=== PATIENT | female | born 1935 | race Caucasian/White ===

== ENCOUNTER → 2016-06-14 | Day surgery (SDC) | payer MEDICARE, OTHER ==
[~2016-06-14] VITALS: Ht 144.8 cm; Wt 61.2 kg
[~2016-06-14] MED LIST: ACETAMINOPHEN 325 MG TAB PO PRN; ASPI325T28 PO; BENZ100C5 PO; D5W/0.2% SODIUM CHLORIDE 250 ML IV SCH; GLIP10TA6 PO; GLIP5TAB8 PO; HYDR12.55 PO; KETOROLAC 0.5% OPHTH SOLN OD ONE; LIDOCAINE 2% W/EPIN INJ 20ML **PRES FREE As Ordered ONE; LIDOCAINE 4% INJ 5 ML AMP OU ONE; LR 1,000 ML IV SCH; MAGN250T5 PO; MAXITROL OPHTH OINT 3.5 GM As Ordered ONE; MIDAZOLAM INJ 2 MG/2 ML VIAL (J2250) As Ordered ONE; OMEP40CA2 PO; ONDANSETRON 4MG/2ML VIAL (J2405) IV PRN; ONETAB11 PO; ONGL1TAB9 PO; POTA99TA PO; POVIDONE-IODINE 5% OPHTH PREP SOL 30ML As Ordered ONE; PROPARACAINE 0.5% OPHTH SOL 15ML OD PRN; PROPOFOL 200 MG/20 ML VIAL As Ordered ONE; SYMB16INH INH; TRIMETHOBENZAMIDE 300 MG CAP PO PRN; TROS60CA2 PO; TYLE500T78 PO; [UNRECOGNIZED DRUG - CODE] PO; fentaNYL 100 MCG/2 ML INJECTION (J3010) As Ordered ONE; mitoMYcin (FOR OPHTHALMIC USE) 0.3MG/1ML SYRINGE IN NaCl (J7999) As Ordered ONE
[2016-06-14 11:40] VITALS: BP 170/75
--- NOTE | 2016-06-24 21:37 | RO ---
DATE OF PROCEDURE: 06/14/2016 PREPROCEDURE DIAGNOSIS: Poorly controlled open angle glaucoma, status post EX-PRESS shunt position supratemporally. POSTPROCEDURE DIAGNOSIS: Poorly controlled open angle glaucoma, status post EX-PRESS shunt position supratemporally. Status post insertion of second EX-PRESS shunt supranasally with mitomycin C 0.3 mg per mL for 2 minutes underneath the conjunctiva. INDICATION FOR PROCEDURE: Poorly controlled open angle glaucoma, status post EX-PRESS shunt position supratemporally. PROCEDURE: EX-PRESS shunt insertion, supranasal position. SURGEON: Prabhu Zacarias Jr., DO, FACS [employer]ITION [employer]SEM[employer] II LABORER: ANESTHESIA: Local and 2% lidocaine with epinephrine infused underneath the conjunctiva and Sub-Tenon's capsule superiorly. SPECIMENS: None. ESTIMATED BLOOD LOSS: Minimal. COMPLICATIONS: Reattaching the conjunctiva to the limbus was difficult. A number of sutures were placed. The eye was leak free at the end of the procedure. DESCRIPTION OF PROCEDURE: After obtaining informed consent, the patient was taken to the operating room and prepped and draped in a sterile fashion. A lid speculum was introduced into the right eye. A bridle suture with #8-0 Vicryl was placed through the temporal cornea, rotating the eye down and temporally. The supranasal conjunctiva was inspected. Subconjunctival injection of 2% lidocaine with epinephrine was performed. A conjunctival peritomy was created. A 3 x 3 partial thickness rectangular scleral flap was created and dissected forward to the blue line of the cornea. Three Mitomycin C soaked sponge, concentration, 0.3 mg per mL were placed underneath the conjunctiva and left in place for two minutes. The eye was irrigated vigorously with three bottles of balanced salt solution (BSS). The EX-PRESS shunt, version P50, was inserted underneath the flap through the blue line of the cornea. The position was good and flow was satisfactory. The scleral flap was reapproximated with a pair of #10-0 nylon sutures through the sclera. The conjunctiva was friable and #8-0 Vicryl and #10-0 nylon sutures were placed to reattach it to the limbus. At the end of the case the eye seemed leak free and the bridle suture was removed. Lid speculum was removed. The eye was administered Maxitrol ointment, patched and shielded. The patient returned to the recovery room in excellent condition and will followup in the office on postoperative day #1.
== END | disposition home or self-care (01) ==
LOC: M SDC 07:00
PROVIDERS: ATTEND Ophthalmology
DX: H40.10X0 Unspecified open-angle glaucoma, stage unspecified (principal); I10 Essential (primary) hypertension; E11.9 Type 2 diabetes mellitus without complications; K21.9 Gastro-esophageal reflux disease without esophagitis; R29.898 Other symptoms and signs involving the musculoskeletal system; M54.5 Low back pain; F32.9 Major depressive disorder, single episode, unspecified; J45.909 Unspecified asthma, uncomplicated; R06.02 Shortness of breath; N32.81 Overactive bladder; Z88.8 Allergy status to other drugs, medicaments and biological substances; Z79.899 Other long term (current) drug therapy; Z90.710 Acquired absence of both cervix and uterus; Z96.1 Presence of intraocular lens
CPT/HCPCS: 66183; C1783; J2250; J3010; J7999

== ENCOUNTER 2019-03-15 05:49 | Day surgery (SDC) | payer MEDICARE, OTHER ==
[~2019-03-15] VITALS: Ht 144.8 cm; Wt 60.7 kg
[~2019-03-15 05:49] MED LIST changes: -ACETAMINOPHEN 325 MG TAB PO PRN; +AMLO-183 PO; +APAP500T10 PO; +ASPI-527 PO; -ASPI325T28 PO; +BENZ-18 PO; -BENZ100C5 PO; +BETH1TAB3 PO; +CHILCHW27 PO; +CVS1TAB PO; -D5W/0.2% SODIUM CHLORIDE 250 ML IV SCH; +INSUDET SC; +JANU100T PO; -KETOROLAC 0.5% OPHTH SOLN OD ONE; -LIDOCAINE 2% W/EPIN INJ 20ML **PRES FREE As Ordered ONE; -LIDOCAINE 4% INJ 5 ML AMP OU ONE; -LR 1,000 ML IV SCH; -MAGN250T5 PO; +MAGN250T6 PO; -MAXITROL OPHTH OINT 3.5 GM As Ordered ONE; -MIDAZOLAM INJ 2 MG/2 ML VIAL (J2250) As Ordered ONE; -OMEP40CA2 PO; +OMEP40CA97 PO; -ONDANSETRON 4MG/2ML VIAL (J2405) IV PRN; +ONE1TAB3 PO; -ONETAB11 PO; -POVIDONE-IODINE 5% OPHTH PREP SOL 30ML As Ordered ONE; -PROPARACAINE 0.5% OPHTH SOL 15ML OD PRN; -PROPOFOL 200 MG/20 ML VIAL As Ordered ONE; +SM M250T PO; +SM P99TA PO; -TRIMETHOBENZAMIDE 300 MG CAP PO PRN; -[UNRECOGNIZED DRUG - CODE] PO; -fentaNYL 100 MCG/2 ML INJECTION (J3010) As Ordered ONE; -mitoMYcin (FOR OPHTHALMIC USE) 0.3MG/1ML SYRINGE IN NaCl (J7999) As Ordered ONE
[2019-03-15] MEDS ORDERED: ceFAZolin SOD 2 GM in IV 1 EA IV ONE (06:00)
[2019-03-15] MEDS ORDERED: LR 1,000 ML IV ONE (06:00)
[2019-03-15] MEDS ORDERED: ROCURONIUM BROMIDE 50 MG/5 ML VIAL As Ordered ONE (06:50)
[2019-03-15] MEDS ORDERED: LIDOCAINE 2% INJ 100 MG/5 ML SDV (FOR ANES.) As Ordered ONE ×2 (06:50→07:00)
[2019-03-15] MEDS ORDERED: ONDANSETRON 4MG/2ML VIAL (J2405) As Ordered ONE (06:51)
[2019-03-15] MEDS ORDERED: propofoL 200 MG/20 ML VIAL As Ordered ONE ×2 (06:51→07:00)
[2019-03-15] MEDS ORDERED: dexameTHASONE 4 MG/ML 1ML VIAL (J1100) As Ordered ONE (06:51)
[2019-03-15] MEDS ORDERED: fentaNYL 100 MCG/2 ML INJECTION (J3010) As Ordered ONE ×2 (06:52→08:27)
[2019-03-15] MEDS ORDERED: KETAMINE HCL 200 MG/20 ML VIAL As Ordered ONE (06:52)
[2019-03-15] MEDS ORDERED: LIDOCAINE 1% SDV INJ 30 ML VIAL As Ordered ONE (06:58)
[2019-03-15] MEDS ORDERED: ceFAZolin 1GM INJ (J0690 PER 500MG) As Ordered ONE (06:58)
[2019-03-15] MEDS ORDERED: ACETAMINOPHEN 1000MG 100ML IV BTL (OFIRMEV) (J0131 PER 10MG) As Ordered ONE (08:12)
[2019-03-15] MEDS ORDERED: LR 1,000 ML IV SCH (09:45)
[2019-03-15] MEDS ORDERED: IBUPROFEN 600 MG TAB PO PRN (09:45)
[2019-03-15 09:55] VITALS: BP 123/56
--- NOTE | 2019-03-15 09:55 | REP ---
LIMITED PELVIS: Two views. HISTORY: Incontinence. 30 seconds of fluoroscopy time is reported. FINDINGS: A sequence of two last image hold fluoroscopically obtained spot radiographs of the pelvis document trans sacral nerve stimulator placement. No laterality markers are visible. Electronically Signed by David Hernandez MD 03/15/2019 10:15 A
--- NOTE | 2019-03-15 15:25 | RO ---
DATE OF PROCEDURE: 03/15/2019 PREPROCEDURE DIAGNOSIS: Both fecal and urinary incontinence. POSTPROCEDURE DIAGNOSIS: Both fecal and urinary incontinence. OPERATIVE PROCEDURE: InterStim stage I. Placement tined lead, placement of temporary generator and programming. SURGEON: Leah Medrano MD GASKET SUPERVISOR: None. ANESTHESIA: Monitored anesthesia care (MAC) and local. DESCRIPTION OF PROCEDURE: Jazmine was brought to the operating room where sufficient sedation was given. She was prepped and draped and positioned in the usual prone position and then after measuring a left-sided lead was placed. With testing we had total response at about 1.6 but no pina at all. We worked medially based on the x-rays that were taken and placed another lead and again had response this time at 2.3 give or take a toe, but not pina. We then stood the needle up somewhat, placed two more leads near the left side, two more different positions, and continued to not really get a decent pina response. We went ahead and moved to the right side where we had several different needle positions. Again checking with the x-ray each time and again getting considerably more toe than pina response. But the patient did on this side feel it much more distinctly in the vaginal area. She was able to definitely describe sensation there more strongly than on the other and at high enough numbers we got pina response as we had not had that on the left side. So we went ahead and used I think this may have been the 6th or 7th needle placed, maybe even 8th through the third foramen. This one on the right side, definitely more than typical. The patient does have palpable arthritic changes as the needles are placed and of course her symptoms of lack of response are consistent with her fecal incontinence symptoms. That said, we used the needle that we had placed with the best response and then went ahead and placed the tined needle for the permanent lead in the usual fashion, then buried this out to the patient's right side, creating a pocket attached to the extension, used of course the antibiotic irrigate for the pocket as well to minimize our risk of infection and then extended out the lead to the patient's right flank for the temporary generator which was then connected and closed the pocket wound with two layer closure of Vicryl and using #2-0 deeper and #3-0 at the skin and then using #3-0 at the skin over the sacrum and at the skin of the flank, and of course dry sterile dressings were then applied and the procedure ended. ESTIMATED BLOOD LOSS: About 1 mL. FLUIDS REPLACED: Crystalloid. COMPLICATIONS: None. The patient did have evidence of suboptimal nerve function, very much consistent with her preoperative concerns, but had a reasonable placement as already noted. We did have toe response at all four leads even though we did not have good pina. We did have vaginal sensation. CONDITION AND DISPOSITION: Jazmine tolerated the procedure well despite the multiple needles needed and was recovering in the recovery room in good condition.
== END 2019-03-15 10:08 | disposition home or self-care (01) ==
LOC: M SDC 05:49
PROVIDERS: ATTEND Obstetrics & Gynecology
DX: R32 Unspecified urinary incontinence (principal); N32.81 Overactive bladder; R15.9 Full incontinence of feces; E11.319 Type 2 diabetes mellitus with unspecified diabetic retinopathy without macular edema; H40.9 Unspecified glaucoma; I10 Essential (primary) hypertension; E78.5 Hyperlipidemia, unspecified; J45.20 Mild intermittent asthma, uncomplicated; K21.9 Gastro-esophageal reflux disease without esophagitis; F41.9 Anxiety disorder, unspecified; G43.909 Migraine, unspecified, not intractable, without status migrainosus; Z88.8 Allergy status to other drugs, medicaments and biological substances; Z79.899 Other long term (current) drug therapy; Z79.82 Long term (current) use of aspirin; Z79.4 Long term (current) use of insulin
CPT/HCPCS: 64581; 76000; C1767; J0131; J0690; J2405; J3010

== ENCOUNTER 2019-03-22 06:14 | Day surgery (SDC) | payer MEDICARE, OTHER ==
[~2019-03-22] VITALS: Ht 144.8 cm; Wt 59.8 kg
[~2019-03-22 06:14] MED LIST changes: +LR 1,000 ML IV ONE; +ceFAZolin SOD 2 GM in IV 1 EA IV ONE
[2019-03-22] MEDS ORDERED: propofoL 500 MG/50 ML VIAL As Ordered ONE (07:00)
[2019-03-22] MEDS ORDERED: ONDANSETRON 4MG/2ML VIAL (J2405) As Ordered ONE (07:00)
[2019-03-22] MEDS ORDERED: dexameTHASONE 4 MG/ML 1ML VIAL (J1100) As Ordered ONE (07:00)
[2019-03-22] MEDS ORDERED: MIDAZOLAM INJ 2 MG/2 ML VIAL (J2250) As Ordered ONE (07:01)
[2019-03-22] MEDS ORDERED: fentaNYL 100 MCG/2 ML INJECTION (J3010) As Ordered ONE (07:01)
[2019-03-22] MEDS ORDERED: LIDOCAINE 1% SDV INJ 30 ML VIAL As Ordered ONE (07:10)
[2019-03-22] MEDS ORDERED: ceFAZolin 1GM INJ (J0690 PER 500MG) As Ordered ONE (07:11)
[2019-03-22 10:10] VITALS: BP 175/72
--- NOTE | 2019-03-22 12:32 | RO ---
DATE OF SURGERY: 03/22/2019 PREOPERATIVE DIAGNOSIS: Success stage I InterStim. POSTPROCEDURE DIAGNOSIS: Success stage I InterStim. OPERATIVE PROCEDURE: InterStim stage II with programming. SURGEON: Leah Medrano MD WEBLOGIC ADMINISTRATOR: None. ANESTHESIA: Sedation and local. BRIEF DESCRIPTION OF PROCEDURE AND FINDINGS: Jazmine was brought to the operating room where sufficient anesthesia was induced. She was placed prone, prepped and draped and positioned in the usual fashion. Then, the area over the extension to the temporary generator was numbed with lidocaine. After appropriate delay, the previous wound was incised and opened to the level of the director regulatory agency connection, which was elevated. The director regulatory agency cable cut and the connection disconnected so that the InterStim lead could then be connected to the permanent generator. After it was connected, a pocket was created. Bovie was used to maintain hemostasis. Antimicrobial irrigant was used. Then, the InterStim was placed into the pocket. I then did a deep layer and superficial layer closure using #2-0 and #3-0 Vicryl, respectively. The impedance was tested. After it passed the test, Steri-Strips and wound dressing were placed. The sutures from the previous procedure were also remove and the director regulatory agency removed as well, and the procedure then ended. Estimated blood loss for the procedure about 2 mL. Fluid replacement was crystalloid. Complications: None. CONDITION AND DISPOSITION: Jazimne tolerated the procedure well, and was recovering in the recovery room in good condition.
== END 2019-03-22 10:35 | disposition home or self-care (01) ==
LOC: M SDC 06:14
PROVIDERS: ATTEND Obstetrics & Gynecology
DX: R32 Unspecified urinary incontinence (principal); N32.81 Overactive bladder; R15.9 Full incontinence of feces; E11.9 Type 2 diabetes mellitus without complications; I10 Essential (primary) hypertension; M54.5 Low back pain; F41.9 Anxiety disorder, unspecified; K21.9 Gastro-esophageal reflux disease without esophagitis; G43.909 Migraine, unspecified, not intractable, without status migrainosus; Z88.8 Allergy status to other drugs, medicaments and biological substances; Z79.899 Other long term (current) drug therapy; Z79.82 Long term (current) use of aspirin; Z79.4 Long term (current) use of insulin
CPT/HCPCS: 64590; C1767; J0690; J1100; J2250; J2405; J3010

== ENCOUNTER 2019-04-10 10:23 | Inpatient (IN) | payer MEDICARE, OTHER ==
[~2019-04-10] VITALS: Ht 149.9 cm; Wt 56.5 kg
[~2019-04-10 10:23] MED LIST changes: -LR 1,000 ML IV ONE; -ceFAZolin SOD 2 GM in IV 1 EA IV ONE
[2019-04-10 12:33] LABS: BASO % 0.4 % (0.0-1.0); EOS % 0.4 % (0.0-3.0); HEMATOCRIT 35.9 % (36.0-47.0); HEMOGLOBIN 11.8 g/dl (12.0-15.5); LYMPH # 1.4 10^3/uL (1.5-5.0); LYMPH % 12.4 % (24.0-44.0); MEAN CORPUSCULAR HEMOGLOBIN 29.1 pg (27.0-33.0); MEAN CORPUSCULAR HGB CONC 32.9 g/dl (32.0-36.5); MEAN CORPUSCULAR VOLUME 88.4 fl (80.0-96.0); MONO # 1.1 10^3/uL (0.0-0.8); MONO % 9.7 % (0.0-5.0); NEUTROPHILS # 8.4 10^3/uL (1.5-8.5); NEUTROPHILS % 75.9 % (36.0-66.0); PLATELET COUNT, AUTOMATED 189 10^3/uL (150-450); RED BLOOD COUNT 4.06 10^6/uL (4.00-5.40)
[2019-04-10] MEDS ORDERED: NS 1,000 ML IV SCH (12:45)
[2019-04-10 12:50] LABS: BLOOD UREA NITROGEN 19 MG/DL (7-18); CALCIUM LEVEL 8.8 MG/DL (8.8-10.2); CARBON DIOXIDE LEVEL 28 MEQ/L (21-32); CHLORIDE LEVEL 95 MEQ/L (98-107); CK-MB VALUE MASS < 1.0 NG/ML (<3.6); CPK CREATINE PHOSPHOKINASE 39 U/L (26-192); CREATININE FOR GFR 0.87 MG/DL (0.55-1.30); GLOMERULAR FILTRATION RATE > 60.0 (>32); GLUCOSE, FASTING 183 MG/DL (70-100); MB/CK RELATIVE INDEX 2.56 (< OR =4); POTASSIUM SERUM 4.5 MEQ/L (3.5-5.1); SODIUM LEVEL 132 MEQ/L (136-145); TROPONIN I < 0.02 NG/ML (< 0.10)
--- NOTE | 2019-04-10 12:53 | REP ---
Clinical: Cough and dyspnea . Comparison: 01/14/2016 . Findings: The mediastinum and cardiac silhouette are stable and within normal limits for portable technique. The lung shen demonstrate chronic stable changes without acute consolidation, effusion, or pneumothorax. Skeletal structures are intact. Evidence of prior gastric surgery. Impression: No acute cardiopulmonary process appreciated. Electronically Signed by Stephen Merchant MD 04/10/2019 12:44 P
[2019-04-10 12:56] LABS: INR 1.19; PROTHROMBIN TIME 14.8 SECONDS (11.8-14.0)
[2019-04-10 13:05] LABS: NT-PRO BNP 3911 PG/ML (<450)
[2019-04-10] MEDS ORDERED: FUROSEMIDE 20 MG/2 ML VIAL (J1940) IV ONE (13:30)
[2019-04-10] MEDS ORDERED: MAALOX 30 ML SUSP *UDC PO PRN (14:45)
[2019-04-10] MEDS ORDERED: MOM 30ML SUSPENSION UDC PO PRN (14:45)
[2019-04-10] MEDS ORDERED: GLUCAGON FOR INJ 1 MG VIAL (J1610) SC PRN (14:45)
[2019-04-10] MEDS ORDERED: ACETAMINOPHEN TAB 650MG DOSE (2X325MG) PO PRN (14:45)
[2019-04-10] MEDS ORDERED: GLUCOSE 4 GM CHEW TABLET PO PRN (14:45)
[2019-04-10] MEDS ORDERED: DEXTROSE 50% 50 ML SYRINGE IV PRN (14:45)
--- NOTE | 2019-04-10 15:02 | HPEPDOC ---
General Date of Admission 04/10/19 Date of Service: Apr 10, 2019 Chief Complaint The patient is a 84-year-old female admitted with a reason for visit of Difficulty Breathing. Source: Patient Exam Limitations: No limitations Timing/Duration: Other (since last surgery 03/22/2019) Severity: Moderate Associated Symptoms: Shortness of breath History of Present Illness This is a 84 years old, elderly white female with past medical history of diabetes mellitus, diabetic retinopathy, hypertension, hyperlipidemia, asthma, GERD, urinary incontinence, fecal incontinence, diverticulosis, and chronic sinusitis was in usual state of health until March 22 when she had a placement of temporary generator as an outpatient for fecal and urinary incontinence done. Patient has been complaining of increasing shortness of breath even when she walks from bed to the bathroom since the surgery but progressively has gotten worse and she decided come to ER. Patient denies chest pain, nausea, vomiting, diarrhea, abdominal pain, cough, phlegm or fever. Home Medications Scheduled Amlodipine/Atorvastatin (Amlodipine-Atorvast 5-10 mg) 1 Tab Tab, 1 TAB PO DAILY, (Reported) B-Complex with Vitamin C (Vitamin B-Complex with Vit C) 1 Each Tablet, 1 TAB PO DAILY, (Reported) Benzonatate (Benzonatate) 100 Mg Cap, 200 MG PO BID, (Reported) Bethanechol Chloride (Bethanechol Chloride) 25 Mg Tablet, 25 MG PO ACHS, (Reported) Hydrochlorothiazide (Hydrochlorothiazide) 12.5 Mg Tab, 25 MG PO DAILY, (Reported) Insulin Detemir (Levemir) 100 Unit/1 Ml Vial, 18 UNITS SC QHS, (Reported) Magnesium (Magnesium) 250 Mg Tablet, 500 MG PO DAILY, (Reported) Multivitamin/Iron/Folic Acid (Multivitamin with Iron Tablet) 1 Each Tablet, 1 EACH PO DAILY, (Reported) Omeprazole (Omeprazole) 40 Mg Cap, 40 MG PO ACB, (Reported) Potassium Gluconate (Potassium) 99 Mg Tablet, 99 MG PO DAILY, (Reported) Sitagliptin Phosphate (Januvia) 100 Mg Tablet, 100 MG PO DAILY, (Reported) Travoprost (Travatan Z) 0.004% 2.5ML Drops, 1 DROP OU QHS, (Reported) Trospium Chloride (Trospium Chloride ER) 60 Mg Cap, 60 MG PO DAILY, (Reported) [hylands leg cramp pm] , 4 TABS PO QHS, (Reported) Scheduled PRN Acetaminophen (Acetaminophen) 500 Mg Tablet, 500 MG PO PRN PRN for PAIN, (Reported) Aspirin (Aspirin EC) 325 Mg Tab, 325 MG PO DAILY PRN for PAIN, (Reported) Allergies Coded Allergies: brinzolamide (Verified Allergy, Intermediate, eye swelling, 03/15/19) brimonidine (Verified Allergy, Unknown, 03/15/19) timolol (Verified Allergy, Unknown, 03/15/19) Past Medical History Medical History Diabetes mellitus, diabetic retinopathy, hypertension, hyperlipidemia, asthma, GERD, urinary incontinence, fecal incontinence, chronic sinusitis, and diverticulosis Surgical History Two-step surgery for placement of temporary generator for fecal and urinary incontinence, bilateral cataract surgery and responded tenderness. Bowel perforation surgery, cholecystectomy, and some esophageal surgery Family History Significant Family History: No pertinent family hx Social History * Smoker: Denies Drugs: denies A-FIB/CHADSVASC A-FIB History Current/History of A-Fib/PAF?: Yes Current PO Anticoag Therapy: No Review of Systems Constitutional: Denies: Chills, Fever, Malaise, Night Sweats, Weakness, Fatigue, Weight Loss, Lethargy, Other Eyes: Denies: Pain, Vision change, Conjunctivae inflammation, Eyelid inflammation, Redness, Other ENT: Denies: Head Aches, Ear Pain, Dysphagia, Sinus Congestion, Post Nasal Drip, Sore Throat, Epistaxis, Other Symptoms Skin: Denies: Rash, Lesions, Jaundice, Bruising, Itching, Dry, Breakdown, Nail Changes, Other Pulmonary: Reports: Dyspnea Cardiovascular: Denies: Chest Pain, Palpitations, Orthopnea, Paroxysmal Noc. Dyspnea, Edema, Lt Headedness, Other Symptoms Gastrointestinal: Denies: Nausea, Vomiting, Abdominal Pain, Diarrhea, Constipation, Melena, Hematochezia, Other Symptoms Genitourinary: Denies: Dysuria, Frequency, Incontinence, Hematuria, Retention, Other Symptoms Hematologic: Denies: Bruising, Bleeding Excessively, Petecchia, Purpura, Enlarged Lymph Nodes, Other Hematologic Endocrine: Denies: Polydipsia, Polyphagia, Polyuria, Heat Intolerance, Cold Intolerance, Other Endocrine Sx Musculoskeletal: Denies: Neck Pain, Back Pain, Shoulder Pain, Arm Pain, Hand Pain, Leg Pain, Foot Pain, Joint Pain, Muscle Pain, Spasms, Other Symptoms Neurological: Denies: Weakness, Numbness, Incoordination, Change in speech, Confusion, Seizures, Other Symptoms Psych: Denies: Mood Normal, Anxiety, Depression, Memory Issues, Thoughts of Self Harm, Anger, Thoughts of Harming Other, Other Psych Physical Examination General Exam: Positive: Alert, Cooperative Eye Exam: Positive: PERRLA, Conjunctiva & lids normal ENT Exam: Positive: Atraumatic, Mucous membr. moist/pink Neck Exam: Positive: Supple Chest Exam: Positive: Normal air movement, Other (. Bilateral basal crackles) Heart Exam: Positive: Rate Normal, Irregular Rhythm, Normal S1, Normal S2 Abdomen Exam: Positive: Normal bowel sounds Extremity Exam: Positive: Edema (, 2+ bipedal edema) Skin Exam: Positive: Nl turgor and temperature Neuro Exam: Positive: Strength at 5/5 X4 ext, Cranial Nerves 3-12 NL Psych Exam: Positive: Mood NL, Oriented x 3 Vital Signs Vital Signs Date Time Temp Pulse Resp B/P (MAP) Pulse Ox O2 Delivery O2 Flow Rate FiO2 04/10/19 13:28 117/58 (77) 04/10/19 13:23 80 16 96 04/10/19 12:04 Room Air 04/10/19 10:23 98.9 Laboratory Data Labs 24H Laboratory Tests 2 04/10/19 12:15: Prothrombin Time 14.8H, Prothromb Time International Ratio 1.19, Anion Gap 9, Glomerular Filtration Rate > 60.0, Calcium Level 8.8, Magnesium Level 2.0, Total Creatine Kinase 39, Creatine Kinase MB < 1.0, Creatine Kinase MB Relative Index 2.56, Troponin I < 0.02, EL-Rxi-S-Type Natriuretic Peptide 3911H 04/10/19 12:16: Immature Granulocyte % (Auto) 1.2, Neutrophils (%) (Auto) 75.9H, Lymphocytes (%) (Auto) 12.4L, Monocytes (%) (Auto) 9.7H, Eosinophils (%) (Auto) 0.4, Basophils (%) (Auto) 0.4, Neutrophils # (Auto) 8.4, Lymphocytes # (Auto) 1.4L, Monocytes # (Auto) 1.1H, Eosinophils # (Auto) 0.0, Basophils # (Auto) 0.0, Nucleated Red Blood Cells % (auto) 0.0 CBC/BMP Laboratory Tests 04/10/19 12:15 04/10/19 12:16 Problems (1) New onset atrial fibrillation Status: Acute Problem Text: 84 years old white female with past medical history of multiple medical problems including diabetes, hypertension, hyperlipidemia, asthma. She h ad a co-done on 10/06/2016, which has showed mild LVH and ejection fraction of 66%, presented with increasing shortness of breath after her surgery on 03/22/2019. Patient's chest x-rays essentially negative. BNP is 3911. EKG shows A. fib with controlled event rate, CBC, CMP are essentially normal. Troponin is less than 0.02, Was likely patient has a proximal atrial fibrillation and most likely acute diastolic heart failure as patient doesn't have a bipedal edema. On examination as well. Patient received Lasix 40 mg IV push in ED and one dose of Cardizem far no reasons as her vent rate is under control. Admit patient to PCU with telemetry Patient received Lasix 40 mg IV push times one in ED Intake and output Lasix at 20 mg by mouth twice a day Metoprolol 12.5 mg by mouth twice a day Lovenox 1 mg per co-gram subcutaneous every 12 hours Echocardiogram Serial troponins in a.m. BNP Repeat EKG in a.m. CTA of chest to rule out PE. The patient recently had surgery DVT prophylaxis: Patient already on Lovenox full dose Diet consistent carbohydrate diet Activity is bed rest except to bathroom (2) Acute diastolic (congestive) heart failure Status: Acute Problem Text: Patient had echo done in September 2016, which shows mild LVH, EF of 66%. Lori's clinical condition, consistent with acute diastolic heart failure Lori received Lasix 40 mg IV in the ED and will start on Lasix 20 mg by mouth twice a day A strict I and O's Echocardiogram in a.m. (3) Asthma Status: Chronic Problem Text: Stable Xopenex nebulizer every 6 hours when necessary Continue home meds (4) Hyperlipidemia Status: Chronic Problem Text: Home meds (5) Diabetes mellitus Status: Chronic Problem Text: Fingerstick blood sugar every before meals and at bedtime . Home meds including basal dose insulin (6) Urinary incontinence Status: Chronic Problem Text: Home meds (7) GERD (gastroesophageal reflux disease) Status: Chronic Problem Text: Home meds (8) Fecal incontinence Status: Chronic Problem Text: Home meds Plan / VTE VTE Prophylaxis Ordered?: Yes LÓPEZ HANSON MD Apr 10, 2019 15:01
[2019-04-10] MEDS ORDERED: [UNRECOGNIZED DRUG - OTHER] PO (15:04)
[2019-04-10] MEDS ORDERED: MULT1TAB55 PO (15:04)
[2019-04-10] MEDS ORDERED: TRAV04OPD OU (15:04)
[2019-04-10] MEDS ORDERED: ISOVUE-370 76% 100ML VIAL (Q9967) As Ordered ONE (15:07)
[2019-04-10] MEDS ORDERED: ASPIRIN ENTERIC 325 MG TAB PO PRN (15:15)
[2019-04-10] MEDS ORDERED: LEVALBUTEROL 1.25 MG/0.5 ML CONCENTRATE NEB INH PRN (15:15)
[2019-04-10] MEDS ORDERED: ENOXAPARIN 60 MG/0.6 ML SYR (J1650) SC ONE (16:00)
--- NOTE | 2019-04-10 16:39 | REP ---
Clinical: Chest pain and shortness of breath . Technique: Axial contrast enhanced images from the thoracic inlet to the upper abdomen using 75 ml Isovue 370 intravenous contrast material with multiplanar re-formations. Findings: Satisfactory enhancement of the pulmonary vasculature is achieved and no filling defects are identified to suggest pulmonary embolus. Cardiomegaly is appreciated and mild pulmonary vascular congestion is suggested along with trace basilar atelectasis. No effusion. No pneumothorax. Thoracic aorta demonstrates atherosclerotic changes without aneurysm or dissection. No adenopathy. Skeletal structures are intact. Impression: No evidence for pulmonary embolus. Cardiomegaly with findings to suggest mild pulmonary vascular congestion and trace basilar atelectasis. Electronically Signed by Stephen Merchant MD 04/10/2019 04:30 P
[2019-04-10 17:17] VITALS: BP 142/64
[2019-04-10] MEDS: HumaLOG INSULIN (NovoLOG) PER UNIT SC SCH ×2 (18:10→20:25)
[2019-04-10 20:00] VITALS: BP 130/60
--- NOTE | 2019-04-10 20:04 | ECGEPIP ---
[facility] - ED Test Date: 2019-04-10 Pat Name: JASON CASEY Department: Room: - Gender: Female Manager Of Finance: : 1935 Requested By: SAMIA Neri Order Number: [id number] Reading MD: Digna Grigsby Measurements Intervals [place] Rate: 91 P: [place]: 0 QRS: 7 QRSD: 72 T: 74 QT: 325 QTc: 402 Interpretive Statements ATRIAL FIBRILLATION NONSPECIFIC T-WAVE ABNORMALITY ABNORMAL RHYTHM ECG NO PRIOR Electronically Signed on 04-10-2019 20:04:16 EST by Digna Grigsby
[2019-04-10] MEDS: ATORVASTATIN 10 MG TAB PO SCH (20:31)
[2019-04-10] MEDS: DOCUSATE SODIUM 100 MG CAP PO SCH (20:31)
[2019-04-10] MEDS: LEVEMIR (INSULIN DETEMIR) 1 UNITS/0.01ML SC SCH (20:32)
[2019-04-10] MEDS: METOPROLOL TART 12.5 MG PER 1/2 TAB PO SCH (20:32)
[2019-04-10] MEDS: LATANOPROST 0.005% OPHTH SOLN 2.5 ML OU SCH (20:33)
[2019-04-11] VITALS: BP 115/57
[2019-04-11 04:00] VITALS: BP 128/66
[2019-04-11 05:55] LABS: NT-PRO BNP 4213 PG/ML (<450); TROPONIN I < 0.02 NG/ML (< 0.10)
[2019-04-11] MEDS ORDERED: ENOXAPARIN 60 MG/0.6 ML SYR (J1650) SC ONE (06:00)
[2019-04-11] MEDS: HumaLOG INSULIN (NovoLOG) PER UNIT SC SCH ×4 (07:30→20:50)
[2019-04-11 07:39] LABS: HEMATOCRIT 34.3 % (36.0-47.0); HEMOGLOBIN 11.4 g/dl (12.0-15.5); MEAN CORPUSCULAR HEMOGLOBIN 29.2 pg (27.0-33.0); MEAN CORPUSCULAR HGB CONC 33.2 g/dl (32.0-36.5); MEAN CORPUSCULAR VOLUME 87.7 fl (80.0-96.0); PLATELET COUNT, AUTOMATED 210 10^3/uL (150-450); RED BLOOD COUNT 3.91 10^6/uL (4.00-5.40); WHITE BLOOD COUNT 7.3 10^3/uL (4.0-10.0)
[2019-04-11 07:45] LABS: ALBUMIN 3.4 GM/DL (3.2-5.2); ALT/SGPT 82 U/L (12-78); BILIRUBIN,TOTAL 0.6 MG/DL (0.2-1.0); BLOOD UREA NITROGEN 23 MG/DL (7-18); CALCIUM LEVEL 8.6 MG/DL (8.8-10.2); CARBON DIOXIDE LEVEL 30 MEQ/L (21-32); CHLORIDE LEVEL 96 MEQ/L (98-107); CREATININE FOR GFR 0.98 MG/DL (0.55-1.30); GLOMERULAR FILTRATION RATE 57.3 (>32); GLUCOSE, FASTING 70 MG/DL (70-100); MAGNESIUM LEVEL 2.4 MG/DL (1.8-2.4); POTASSIUM SERUM 3.9 MEQ/L (3.5-5.1); SODIUM LEVEL 133 MEQ/L (136-145); TOTAL PROTEIN 6.2 GM/DL (6.4-8.2)
[2019-04-11 08:00] VITALS: BP 158/71
[2019-04-11] MEDS: DOCUSATE SODIUM 100 MG CAP PO SCH ×2 (08:10→20:50)
[2019-04-11] MEDS: OMEPRAZOLE 20 MG CAP PO SCH (08:10)
[2019-04-11] MEDS: METOPROLOL TART 12.5 MG PER 1/2 TAB PO SCH ×2 (08:11→20:49)
[2019-04-11] MEDS ORDERED: FUROSEMIDE 20 MG TAB PO SCH (09:00)
--- NOTE | 2019-04-11 09:43 | ECGEPIP ---
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
--- NOTE | 2019-04-11 10:29 | ECHO ---
DATE OF PROCEDURE: 04/10/2019 AGE: 84 GENDER: Female HEIGHT: 69 inches WEIGHT: 134 pounds BODY SURFACE AREA: 1.75 meters squared INPATIENT PCU ROOM: 3211 REFERRING PHYSICIAN: Dr. Teja Riggs INDICATIONS: CHF MEASUREMENTS: 2-D measurements: RV - 3.8 cm LV - 3.8 cm Septum 1.3 cm Posterior wall 1.2 cm Aortic root 3.1 cm LA - 4.4 cm LVEF 75% Doppler measurements: AV - 1.89 meters per second LVOT - 1.0 meters per second LVOT diameter MV - E 126 Early mitral deceleration time 225 milliseconds E prime medial 6, E prime lateral 6.5 Average E/E prime ratio 20/PCWP - 26.9 mmHg PV - 0.95 meters per second Pulmonary artery acceleration time 88 milliseconds RVSP 50 mmHg IVC - 2.1 cm COMMENTS: Underlying atrial fibrillation with controlled ventricular response. Images were somewhat challenging to interpret but diagnostically useful information was still obtained. M-mode and two-dimensional echocardiography was performed with pulsed, continuous wave, color flow and tissue Doppler studies. Mild concentric left ventricle hypertrophy with hyperkinetic wall motion. Moderately dilated left atrium with Doppler evidence of an elevated mean left atrial pressure. At least mildly dilated right ventricle with normal wall motion and moderately severe pulmonary hypertension. Moderately dilated right atrium and mildly dilated IVC with virtually absent respiratory collapse in keeping with elevated central venous pressure/right heart failure. Asymmetrically thickened aortic valve without LV outflow tract obstruction and only very mild insufficiency. Normal aortic root and ascending aortic diameters. Mild degenerative changes of the mitral valvular apparatus with adequate leaflet excursion and no posterior systolic buckling but mild to moderate insufficiency. Normal appearing tricuspid valve with mild to moderate insufficiency. No apparent intracardiac mass or pericardial effusion.
[2019-04-11 12:00] VITALS: BP 136/62
--- NOTE | 2019-04-11 13:51 | IPNPDOC ---
Subjective Date Seen The patient was seen on 04/11/19. Subjective Chief Complaint/HPI And feels slightly better but she did not had a good urinary output with by mouth Lasix General: Denies: ROS Unobtainable, Chills, Night Sweats, Fatigue, Malaise, Normal Appetite, Other Symptoms Constitutional: Denies: Chills, Fever, Malaise, Night Sweats, Weakness, Fatigue, Weight Loss, Lethargy, Other Eyes: Denies: Pain, Vision change, Conjunctivae inflammation, Eyelid infla mmation, Redness, Other ENT: Denies: Head Aches, Ear Pain, Dysphagia, Sinus Congestion, Post Nasal Drip, Sore Throat, Epistaxis, Other Symptoms Skin: Denies: Rash, Lesions, Jaundice, Bruising, Itching, Dry, Breakdown, Nail Changes, Other Pulmonary: Reports: Dyspnea Cardiovascular: Denies: Chest Pain, Palpitations, Orthopnea, Paroxysmal Noc. Dyspnea, Edema, Lt Headedness, Other Symptoms Gastrointestinal: Denies: Nausea, Vomiting, Abdominal Pain, Diarrhea, Constipation, Melena, Hematochezia, Other Symptoms Musculoskeletal: Denies: Neck Pain, Back Pain, Shoulder Pain, Arm Pain, Hand Pain, Leg Pain, Foot Pain, Joint Pain, Muscle Pain, Spasms, Other Symptoms Neurological: Denies: Weakness, Numbness, Incoordination, Change in speech, Confusion, Seizures, Other Symptoms Psych: Denies: Mood Normal, Anxiety, Depression, Memory Issues, Thoughts of Self Harm, Anger, Thoughts of Harming Other, Other Psych Objective Physical Examination ENT Exam: Positive: Atraumatic, Mucous membr. moist/pink Neck Exam: Positive: Supple Chest Exam: Positive: Normal air movement, Other (. Bilateral basal crackles) Heart Exam: Positive: Rate Normal, Irregular Rhythm, Normal S1, Normal S2 Abdomen Exam: Positive: Normal bowel sounds Extremity Exam: Positive: Edema (, 2+ bipedal edema) Skin Exam: Positive: Nl turgor and temperature Neuro Exam: Positive: Strength at 5/5 X4 ext, Cranial Nerves 3-12 NL Psych Exam: Positive: Mood NL, Oriented x 3 Assessment /Plan Problems (1) Acute diastolic (congestive) heart failure Status: Acute Problem Text: Patient's echocardiogram is consistent with left ventricular hypertrophy with hyperkinetic wall motion, moderately dilated left atrium, EF of 75% pt most likely has an acute diastolic heart failure, not responding to by mouth Lasix, patient is in positive balance on intake and output chart Will change to Lasix 40 mg IV every 12 hours Monitor intake and output Continue beta blockers Continue all present meds (2) New onset atrial fibrillation Status: Acute Problem Text: Rate is under well control Continue beta blockers to control rate Will DC Lovenox and is started on Xarelto 30 mg by mouth daily Lori was explained all the risks and benefits of anticoagulation therapy risk also include GI) bleed, multiple bruises even possibly , which she understands very well (3) GERD (gastroesophageal reflux disease) Status: Chronic Problem Text: Continue home meds (4) Diabetes mellitus Status: Chronic Problem Text: Fingerstick blood sugar Guest in ages with coverage Continue home meds (5) Asthma Status: Chronic Problem Text: Continue home meds (6) Hyperlipidemia Status: Chronic Problem Text: Continue home meds Plan/VTE VTE Prophylaxis Ordered?: Yes VS, I&O, 24H, Fishbone Vital Signs/I&O Vital Signs Date Time Temp Pulse Resp B/P (MAP) Pulse Ox O2 Delivery O2 Flow Rate FiO2 04/11/19 12:00 98.0 83 16 136/62 (86) 95 Room Air I&O- Last 24 Hours up to 6 AM 04/11/19 06:00 Intake Total 520 ml Output Total 300 ml Balance 220 ml Laboratory Data 24H LABS Laboratory Tests 2 04/10/19 17:31: Bedside Glucose (Misc Panel) 161H 04/10/19 20:07: Bedside Glucose (Misc Panel) 128H 04/11/19 04:52: Nucleated Red Blood Cells % (auto) 0.0 04/11/19 04:55: Anion Gap 7L, Glomerular Filtration Rate 57.3, Calcium Level 8.6L, Magnesium Level 2.4, Total Bilirubin 0.6, Aspartate Amino Transf (AST/SGOT) 39H, Alanine Aminotransferase (ALT/SGPT) 82H, Alkaline Phosphatase 101, Troponin I < 0.02, DA-Erd-M-Type Natriuretic Peptide 4213H, Total Protein 6.2L, Albumin 3.4, Albumin/Globulin Ratio 1.21 04/11/19 07:15: Bedside Glucose (Misc Panel) 71L 04/11/19 11:49: Bedside Glucose (Misc Panel) 112H CBC/BMP Laboratory Tests 04/11/19 04:52 04/11/19 04:55 LÓPEZ HANSON MD Apr 11, 2019 13:51
[2019-04-11 16:00] VITALS: BP 132/61
[2019-04-11] MEDS: RIVAROXABAN 15 MG TAB (XARELTO) PO SCH (17:25)
[2019-04-11 20:00] VITALS: BP 140/69
[2019-04-11] MEDS ORDERED: ENOXAPARIN 60 MG/0.6 ML SYR (J1650) SC SCH (20:00)
[2019-04-11] MEDS: FUROSEMIDE 40 MG/4 ML VIAL (J1940) IV SCH (20:50)
[2019-04-11] MEDS: ATORVASTATIN 10 MG TAB PO SCH (20:50)
[2019-04-11] MEDS: LEVEMIR (INSULIN DETEMIR) 1 UNITS/0.01ML SC SCH (20:50)
[2019-04-11] MEDS: LATANOPROST 0.005% OPHTH SOLN 2.5 ML OU SCH (20:51)
[2019-04-12] VITALS (7 sets, daily range): BP systolic 119–143; BP diastolic 54–65
[2019-04-12 05:32] LABS: BASO % 0.4 % (0.0-1.0); EOS # 0.1 10^3/uL (0.0-0.5); EOS % 1.5 % (0.0-3.0); HEMATOCRIT 33.4 % (36.0-47.0); HEMOGLOBIN 10.9 g/dl (12.0-15.5); LYMPH # 1.7 10^3/uL (1.5-5.0); LYMPH % 25.2 % (24.0-44.0); MEAN CORPUSCULAR HEMOGLOBIN 28.6 pg (27.0-33.0); MEAN CORPUSCULAR HGB CONC 32.6 g/dl (32.0-36.5); MEAN CORPUSCULAR VOLUME 87.7 fl (80.0-96.0); MONO # 0.7 10^3/uL (0.0-0.8); MONO % 10.8 % (0.0-5.0); NEUTROPHILS # 4.2 10^3/uL (1.5-8.5); NEUTROPHILS % 61.2 % (36.0-66.0); PLATELET COUNT, AUTOMATED 192 10^3/uL (150-450); RED BLOOD COUNT 3.81 10^6/uL (4.00-5.40); WHITE BLOOD COUNT 6.8 10^3/uL (4.0-10.0)
[2019-04-12 06:05] LABS: ALBUMIN 3.4 GM/DL (3.2-5.2); ALT/SGPT 77 U/L (12-78); BILIRUBIN,TOTAL 0.3 MG/DL (0.2-1.0); BLOOD UREA NITROGEN 22 MG/DL (7-18); CALCIUM LEVEL 8.2 MG/DL (8.8-10.2); CARBON DIOXIDE LEVEL 29 MEQ/L (21-32); CHLORIDE LEVEL 98 MEQ/L (98-107); CREATININE FOR GFR 0.91 MG/DL (0.55-1.30); GLOMERULAR FILTRATION RATE > 60.0 (>32); GLUCOSE, FASTING 66 MG/DL (70-100); MAGNESIUM LEVEL 2.1 MG/DL (1.8-2.4); POTASSIUM SERUM 3.1 MEQ/L (3.5-5.1); SODIUM LEVEL 135 MEQ/L (136-145)
[2019-04-12] MEDS: HumaLOG INSULIN (NovoLOG) PER UNIT SC SCH ×4 (07:30→20:30)
[2019-04-12] MEDS: POTASSIUM CHLORIDE 10 MEQ SR TABLET PO SCH (08:10)
[2019-04-12] MEDS: OMEPRAZOLE 20 MG CAP PO SCH (08:10)
[2019-04-12] MEDS: DOCUSATE SODIUM 100 MG CAP PO SCH ×2 (08:10→20:29)
[2019-04-12] MEDS: FUROSEMIDE 40 MG/4 ML VIAL (J1940) IV SCH ×2 (08:10→20:29)
[2019-04-12] MEDS: METOPROLOL TART 12.5 MG PER 1/2 TAB PO SCH ×2 (08:10→20:29)
[2019-04-12] MEDS ORDERED: FLUBLOK(EGG FREE)(QUAD)INFLUENZA VACC 0.5ML SYRINGE (90682)18YRS&OLDER IM ONE (09:00)
--- NOTE | 2019-04-12 11:32 | IPNPDOC ---
Subjective Date Seen The patient was seen on 04/12/19. Subjective Chief Complaint/HPI Patient is feeling slightly better started physical therapy today. Her output is -450 General: Denies: ROS Unobtainable, Chills, Night Sweats, Fatigue, Malaise, Normal Appetite, Other Symptoms Constitutional: Denies: Chills, Fever, Malaise, Night Sweats, Weakness, Fatigue, Weight Loss, Lethargy, Other Pulmonary: Denies: Dyspnea, Cough, Pleuritic Chest Pain, Other Symptoms Cardiovascular: Denies: Chest Pain, Palpitations, Orthopnea, Paroxysmal Noc. Dyspnea, Edema, Lt Headedness, Other Symptoms Gastrointestinal: Denies: Nausea, Vomiting, Abdominal Pain, Diarrhea, Constipation, Melena, Hematochezia, Other Symptoms Hematologic: Denies: Bruising, Bleeding Excessively, Petecchia, Purpura, Enlarged Lymph Nodes, Other Hematologic Endocrine: Denies: Polydipsia, Polyphagia, Polyuria, Heat Intolerance, Cold Intolerance, Other Endocrine Sx Musculoskeletal: Denies: Neck Pain, Back Pain, Shoulder Pain, Arm Pain, Hand Pain, Leg Pain, Foot Pain, Joint Pain, Muscle Pain, Spasms, Other Symptoms Neurological: Denies: Weakness, Numbness, Incoordination, Change in speech, Confusion, Seizures, Other Symptoms Objective Physical Examination ENT Exam: Positive: Atraumatic, Mucous membr. moist/pink Neck Exam: Positive: Supple Chest Exam: Positive: Normal air movement, Other (. Bilateral basal crackles) Heart Exam: Positive: Rate Normal, Irregular Rhythm, Normal S1, Normal S2 Abdomen Exam: Positive: Normal bowel sounds Extremity Exam: Positive: Edema (, 2+ bipedal edema) Skin Exam: Positive: Nl turgor and temperature Neuro Exam: Positive: Strength at 5/5 X4 ext, Cranial Nerves 3-12 NL Psych Exam: Positive: Mood NL, Oriented x 3 Assessment /Plan Problems (1) Acute diastolic (congestive) heart failure Status: Acute Problem Text: Patient's echocardiogram is consistent with left ventricular hypertrophy with hyperkinetic wall motion, moderately dilated left atrium, EF of 75% pt most likely has an acute diastolic heart failure, not responding to by mouth Lasix, patient is in positive balance on intake and output chart Patient responding to Lasix 40 mg IV every 12 hours her intake and output is - 450 today Continue monitoring output DD all current meds Is ago therapy in progress (2) New onset atrial fibrillation Status: Acute Problem Text: Rate is under well control Continue beta blockers to control rate Will DC Lovenox and is started on Xarelto 30 mg by mouth daily Lori was explained all the risks and benefits of anticoagulation therapy risk also include GI) bleed, multiple bruises even possibly , which she understands very well (3) GERD (gastroesophageal reflux disease) Status: Chronic Problem Text: Continue home meds (4) Diabetes mellitus Status: Chronic Problem Text: Gastric blood sugar every before meals and at bedtime with coverage Patient's fingerstick in the morning has been between 60 and 70 twice. hence we will reduce the long-acting Levemir to 15 units subcutaneous daily at bedtime and monitor fingerstick blood sugar (5) Asthma Status: Chronic Problem Text: Continue home meds (6) Hyperlipidemia Status: Chronic Problem Text: Continue home meds Plan/VTE VTE Prophylaxis Ordered?: Yes VS, I&O, 24H, Fishbone Vital Signs/I&O Vital Signs Date Time Temp Pulse Resp B/P (MAP) Pulse Ox O2 Delivery O2 Flow Rate FiO2 04/12/19 08:10 77 137/64 04/12/19 08:00 97.9 18 98 Room Air I&O- Last 24 Hours up to 6 AM 04/12/19 06:00 Intake Total 1320 ml Output Total 750 ml Balance 570 ml Laboratory Data 24H LABS Laboratory Tests 2 04/11/19 11:49: Bedside Glucose (Misc Panel) 112H 04/11/19 16:55: Bedside Glucose (Misc Panel) 171H 04/11/19 20:41: Bedside Glucose (Misc Panel) 117H 04/12/19 04:54: Immature Granulocyte % (Auto) 0.9, Neutrophils (%) (Auto) 61.2, Lymphocytes (%) (Auto) 25.2, Monocytes (%) (Auto) 10.8H, Eosinophils (%) (Auto) 1.5, Basophils (%) (Auto) 0.4, Neutrophils # (Auto) 4.2, Lymphocytes # (Auto) 1.7, Monocytes # (Auto) 0.7, Eosinophils # (Auto) 0.1, Basophils # (Auto) 0.0, Nucleated Red Blood Cells % (auto) 0.0, Anion Gap 8, Glomerular Filtration Rate > 60.0, Calcium Level 8.2L, Magnesium Level 2.1, Total Bilirubin 0.3, Aspartate Amino Transf (AST/SGOT) 33, Alanine Aminotransferase (ALT/SGPT) 77, Alkaline Phosphatase 104, Total Protein 6.0L, Albumin 3.4, Albumin/Globulin Ratio 1.31 04/12/19 08:18: Bedside Glucose (Misc Panel) 129H 04/12/19 11:27: CBC/BMP Laboratory Tests 04/12/19 04:54 LÓPEZ HANSON MD Apr 12, 2019 11:32
[2019-04-12] MEDS: RIVAROXABAN 15 MG TAB (XARELTO) PO SCH (17:36)
[2019-04-12] MEDS: ATORVASTATIN 10 MG TAB PO SCH (20:29)
[2019-04-12] MEDS: LATANOPROST 0.005% OPHTH SOLN 2.5 ML OU SCH (20:30)
[2019-04-12] MEDS ORDERED: LEVEMIR (INSULIN DETEMIR) 1 UNITS/0.01ML SC SCH (21:00)
[2019-04-13] VITALS (7 sets, daily range): BP systolic 127–161; BP diastolic 63–75
[2019-04-13 05:14] LABS: BASO % 0.6 % (0.0-1.0); EOS # 0.1 10^3/uL (0.0-0.5); EOS % 1.7 % (0.0-3.0); HEMATOCRIT 33.6 % (36.0-47.0); HEMOGLOBIN 11.3 g/dl (12.0-15.5); LYMPH # 1.5 10^3/uL (1.5-5.0); LYMPH % 23.3 % (24.0-44.0); MEAN CORPUSCULAR HEMOGLOBIN 29.2 pg (27.0-33.0); MEAN CORPUSCULAR HGB CONC 33.6 g/dl (32.0-36.5); MEAN CORPUSCULAR VOLUME 86.8 fl (80.0-96.0); MONO # 0.8 10^3/uL (0.0-0.8); MONO % 12.9 % (0.0-5.0); NEUTROPHILS % 60.7 % (36.0-66.0); PLATELET COUNT, AUTOMATED 205 10^3/uL (150-450); RED BLOOD COUNT 3.87 10^6/uL (4.00-5.40); WHITE BLOOD COUNT 6.5 10^3/uL (4.0-10.0)
[2019-04-13 05:37] LABS: ALBUMIN 3.3 GM/DL (3.2-5.2); ALT/SGPT 62 U/L (12-78); BILIRUBIN,TOTAL 0.4 MG/DL (0.2-1.0); BLOOD UREA NITROGEN 24 MG/DL (7-18); CARBON DIOXIDE LEVEL 28 MEQ/L (21-32); CHLORIDE LEVEL 100 MEQ/L (98-107); GLOMERULAR FILTRATION RATE > 60.0 (>32); GLUCOSE, FASTING 70 MG/DL (70-100); POTASSIUM SERUM 3.4 MEQ/L (3.5-5.1); SODIUM LEVEL 136 MEQ/L (136-145); TOTAL PROTEIN 5.9 GM/DL (6.4-8.2)
[2019-04-13] MEDS: HumaLOG INSULIN (NovoLOG) PER UNIT SC SCH ×4 (07:30→21:00)
[2019-04-13] MEDS ORDERED: POTASSIUM CHLORIDE 10 MEQ SR TABLET PO ONE (07:45)
[2019-04-13] MEDS: METOPROLOL TART 12.5 MG PER 1/2 TAB PO SCH ×2 (08:36→20:59)
[2019-04-13] MEDS: DOCUSATE SODIUM 100 MG CAP PO SCH ×2 (08:36→20:59)
[2019-04-13] MEDS: POTASSIUM CHLORIDE 10 MEQ SR TABLET PO SCH (08:37)
[2019-04-13] MEDS: FUROSEMIDE 40 MG/4 ML VIAL (J1940) IV SCH (08:37)
[2019-04-13] MEDS: OMEPRAZOLE 20 MG CAP PO SCH (08:37)
--- NOTE | 2019-04-13 10:52 | REP ---
Clinical: Shortness of breath. CHF . Comparison: 04/10/2019 . Findings: Stable cardiomegaly and diffuse chronic interstitial changes. No obvious cephalization or evidence to suggest CHF/pulmonary edema. No acute consolidation or obvious effusion. No pneumothorax. Impression: Stable cardiomegaly. No acute cardiopulmonary process appreciated. Electronically Signed by Stephen Merchant MD 04/13/2019 10:42 A
--- NOTE | 2019-04-13 11:07 | IPNPDOC ---
Subjective Date Seen The patient was seen on 04/13/19. Subjective Chief Complaint/HPI Patient is feeling much better, but complaining about one to bathroom too many times at night. Her respiratory status is improved. She is not complaining of shortness of breath General: Denies: ROS Unobtainable, Chills, Night Sweats, Fatigue, Malaise, Normal Appetite, Other Symptoms Constitutional: Denies: Chills, Fever, Malaise, Night Sweats, Weakness, Fatigue, Weight Loss, Lethargy, Other Pulmonary: Denies: Dyspnea, Cough, Pleuritic Chest Pain, Other Symptoms Cardiovascular: Denies: Chest Pain, Palpitations, Orthopnea, Paroxysmal Noc. Dyspnea, Edema, Lt Headedness, Other Symptoms Gastrointestinal: Denies: Nausea, Vomiting, Abdominal Pain, Diarrhea, Constipation, Melena, Hematochezia, Other Symptoms Genitourinary: Denies: Dysuria, Frequency, Incontinence, Hematuria, Retention, Other Symptoms Musculoskeletal: Denies: Neck Pain, Back Pain, Shoulder Pain, Arm Pain, Hand Pain, Leg Pain, Foot Pain, Joint Pain, Muscle Pain, Spasms, Other Symptoms Neurological: Denies: Weakness, Numbness, Incoordination, Change in speech, Confusion, Seizures, Other Symptoms Objective Physical Examination ENT Exam: Positive: Atraumatic, Mucous membr. moist/pink Neck Exam: Positive: Supple Chest Exam: Positive: Normal air movement, Other (. Bilateral basal crackles) Heart Exam: Positive: Rate Normal, Irregular Rhythm, Normal S1, Normal S2 Abdomen Exam: Positive: Normal bowel sounds Extremity Exam: Positive: Edema (, 2+ bipedal edema) Skin Exam: Positive: Nl turgor and temperature Assessment /Plan Problems (1) Acute diastolic (congestive) heart failure Status: Acute Problem Text: Patient's echocardiogram is consistent with left ventricular hypertrophy with hyperkinetic wall motion, moderately dilated left atrium, EF of 75% pt most likely has an acute diastolic heart failure, not responding to by mouth Lasix, patient is in positive balance on intake and output chart Patient has responded very well to IV Lasix. Patient's balance was -280 today As patient has lost a lot of volume will change it to Lasix 40 mg by mouth in a.m. to avoid her going to bathroom multiple times at night, not getting good sleep Continue all other medications Will repeat chest x-ray Possible discharge soon PT and progress (2) New onset atrial fibrillation Status: Acute Problem Text: Rate is under well control Continue beta blockers to control rate Will DC Lovenox and is started on Xarelto 30 mg by mouth daily pt was explained all the risks and benefits of anticoagulation therapy risk also include GI) bleed, multiple bruises even possibly , which she understands very well Possible discharge soon (3) GERD (gastroesophageal reflux disease) Status: Chronic Problem Text: Continue home meds (4) Diabetes mellitus Status: Chronic Problem Text: Gastric blood sugar every before meals and at bedtime with coverage Patient's fingerstick in the morning has been between 60 and 70 twice. hence we will reduce the long-acting Levemir to 15 units subcutaneous daily at bedtime and monitor fingerstick blood sugar (5) Asthma Status: Chronic Problem Text: Continue home meds (6) Hyperlipidemia Status: Chronic Problem Text: Continue home meds Plan/VTE VTE Prophylaxis Ordered?: Yes VS, I&O, 24H, Fishbone Vital Signs/I&O Vital Signs Date Time Temp Pulse Resp B/P (MAP) Pulse Ox O2 Delivery O2 Flow Rate FiO2 04/13/19 08:36 91 155/67 04/13/19 08:00 96.8 20 96 Room Air I&O- Last 24 Hours up to 6 AM 04/13/19 06:00 Intake Total 680 ml Output Total 2700 ml Balance -2020 ml Laboratory Data 24H LABS Laboratory Tests 2 04/12/19 11:27: Bedside Glucose (Misc Panel) 122H 04/12/19 16:41: Bedside Glucose (Misc Panel) 145H 04/12/19 20:17: Bedside Glucose (Misc Panel) 203H 04/13/19 04:46: Immature Granulocyte % (Auto) 0.8, Neutrophils (%) (Auto) 60.7, Lymphocytes (%) (Auto) 23.3L, Monocytes (%) (Auto) 12.9H, Eosinophils (%) (Auto) 1.7, Basophils (%) (Auto) 0.6, Neutrophils # (Auto) 4.0, Lymphocytes # (Auto) 1.5, Monocytes # (Auto) 0.8, Eosinophils # (Auto) 0.1, Basophils # (Auto) 0.0, Nucleated Red Blood Cells % (auto) 0.0, Anion Gap 8, Glomerular Filtration Rate > 60.0, Calcium Level 8.0L, Total Bilirubin 0.4, Aspartate Amino Transf (AST/SGOT) 20, Alanine Aminotransferase (ALT/SGPT) 62, Alkaline Phosphatase 89, Total Protein 5.9L, Albumin 3.3, Albumin/Globulin Ratio 1.27 CBC/BMP Laboratory Tests 04/13/19 04:46 LÓPEZ HANSON MD Apr 13, 2019 11:07
[2019-04-13] MEDS ORDERED: SLF 3 ML SYR IV PRN (13:00)
[2019-04-13] MEDS: SLF 3 ML SYR IV SCH ×2 (14:04→21:00)
[2019-04-13] MEDS: RIVAROXABAN 15 MG TAB (XARELTO) PO SCH (17:22)
[2019-04-13] MEDS: LATANOPROST 0.005% OPHTH SOLN 2.5 ML OU SCH (20:57)
[2019-04-13] MEDS: ATORVASTATIN 10 MG TAB PO SCH (20:59)
[2019-04-13] MEDS ORDERED: LEVEMIR (INSULIN DETEMIR) 1 UNITS/0.01ML SC SCH (21:00)
[2019-04-14 02:00] VITALS: BP 130/73
[2019-04-14] MEDS: SLF 3 ML SYR IV SCH (03:50)
[2019-04-14 06:00] VITALS: BP 134/74
[2019-04-14 06:53] LABS: BASO % 0.4 % (0.0-1.0); EOS # 0.1 10^3/uL (0.0-0.5); EOS % 1.6 % (0.0-3.0); HEMATOCRIT 34.7 % (36.0-47.0); HEMOGLOBIN 11.4 g/dl (12.0-15.5); LYMPH # 1.5 10^3/uL (1.5-5.0); LYMPH % 18.2 % (24.0-44.0); MEAN CORPUSCULAR HEMOGLOBIN 28.9 pg (27.0-33.0); MEAN CORPUSCULAR HGB CONC 32.9 g/dl (32.0-36.5); MEAN CORPUSCULAR VOLUME 87.8 fl (80.0-96.0); MONO % 11.6 % (0.0-5.0); NEUTROPHILS # 5.5 10^3/uL (1.5-8.5); NEUTROPHILS % 67.3 % (36.0-66.0); PLATELET COUNT, AUTOMATED 210 10^3/uL (150-450); RED BLOOD COUNT 3.95 10^6/uL (4.00-5.40); WHITE BLOOD COUNT 8.2 10^3/uL (4.0-10.0)
[2019-04-14 07:29] LABS: ALBUMIN 3.5 GM/DL (3.2-5.2); ALT/SGPT 57 U/L (12-78); BILIRUBIN,TOTAL 0.7 MG/DL (0.2-1.0); BLOOD UREA NITROGEN 28 MG/DL (7-18); CALCIUM LEVEL 8.4 MG/DL (8.8-10.2); CARBON DIOXIDE LEVEL 26 MEQ/L (21-32); CHLORIDE LEVEL 103 MEQ/L (98-107); CREATININE FOR GFR 0.83 MG/DL (0.55-1.30); GLOMERULAR FILTRATION RATE > 60.0 (>32); GLUCOSE, FASTING 118 MG/DL (70-100); POTASSIUM SERUM 3.8 MEQ/L (3.5-5.1); SODIUM LEVEL 136 MEQ/L (136-145); TOTAL PROTEIN 6.2 GM/DL (6.4-8.2)
[2019-04-14 07:49] LABS: HEMOGLOBIN A1c 8.7 %
[2019-04-14] MEDS: POTASSIUM CHLORIDE 10 MEQ SR TABLET PO SCH (08:06)
[2019-04-14] MEDS: OMEPRAZOLE 20 MG CAP PO SCH (08:06)
[2019-04-14 08:07] VITALS: BP 136/68
[2019-04-14] MEDS: DOCUSATE SODIUM 100 MG CAP PO SCH (08:07)
[2019-04-14] MEDS: METOPROLOL TART 12.5 MG PER 1/2 TAB PO SCH (08:07)
[2019-04-14] MEDS: HumaLOG INSULIN (NovoLOG) PER UNIT SC SCH ×2 (08:08→12:00)
[2019-04-14] MEDS ORDERED: FUROSEMIDE 40 MG TAB PO SCH (09:00)
[2019-04-14 10:00] VITALS: BP 121/62
[2019-04-14] MEDS ORDERED: METO1TAB87 PO (10:14)
[2019-04-14] MEDS ORDERED: KLOR20TA42 PO (10:14)
[2019-04-14] MEDS ORDERED: XARE15TA PO (10:14)
[2019-04-14] MEDS ORDERED: FURO40TA2 PO (10:14)
--- NOTE | 2019-04-14 12:04 | DS.PDOC ---
Discharge Summary General Date of Admission Apr 11, 2019 at 08:00 Date of Discharge 04/14/19 Discharge Summary PROCEDURES PERFORMED DURING STAY: None. ADMITTING DIAGNOSES: 1. New onset A. fib. DISCHARGE DIAGNOSES: 1. New onset A. fib, acute diastolic heart failure, diabetes mellitus, GERD, hypertension, hyperlipidemia, asthma, urinary incontinence, fecal incontinence, diverticulosis. COMPLICATIONS/CHIEF COMPLAINT: New Onset Atrial Fibrillation. HISTORY OF PRESENT ILLNESS: This is a 84 years old, elderly white female with past medical history of diabetes mellitus, diabetic retinopathy, hypertension, hyperlipidemia, asthma, GERD, urinary incontinence, fecal incontinence, diverticulosis, and chronic sinusitis was in usual state of health until March 22 when she had a placement of temporary generator as an outpatient for fecal and urinary incontinence done. Patient has been complaining of increasing shortness of breath even when she walks from bed to the bathroom since the surgery but progressively has gotten worse and she decided come to ER. Patient denies chest pain, nausea, vomiting, diarrhea, abdominal pain, cough, phlegm or fever.. Hospital course: Acute diastolic heart failure 84 years old, white female was admitted with chief complaints of shortness of breath, not responding to outpatient therapy. On clinical examination, patient was found to be in the congestive heart failure, which is acute. Acute on chronic diastolic heart failure Patient's echocardiogram is consistent with left ventricular hypertrophy with hyperkinetic wall motion, moderately dilated left atrium, EF of 75% Patient was started on by mouth Lasix initially but her response was poor. Hence Lasix was changed to IV Lasix. She responded very well to IV diuresis and had a good urine output with complete clearing of her shortness of breath and bilateral pedal edema As patient is clinically stable and will be discharged home. Her Lasix will be changed to 40 mg by mouth daily and KCl 20 mEq by mouth daily Patient will follow with her PCP and cardiology as an outpatient New onset atrial fibrillation Rate is under well control with metoprolol 12.5 mg by mouth twice a day Will continue the same dose at home as outpatient and hematocrit. 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 ALLERGIES: Please see below. PHYSICAL EXAMINATION ON DISCHARGE: VITAL SIGNS: Please see below. GENERAL: Within normal limits HEENT: PERRLA. Extraocular muscles intact NECK: Supple CARDIOVASCULAR EXAMINATION: S1, S2, regular RESPIRATORY EXAMINATION: Clear to A&P ABDOMINAL EXAMINATION: Benign EXTREMITIES: No edema noted SKIN: Normal NEUROLOGICAL EXAMINATION: . No focal motor sensory deficit PSYCHIATRIC EXAMINATION: Normal LABORATORY DATA: Please see below. IMAGING: Chest x-ray:Impression: No acute cardiopulmonary process appreciated. PROGNOSIS: Good ACTIVITY: As tolerated. DIET: as tolerated DISCHARGE PLAN: Follow with PCP and cardiology in 1 week DISPOSITION: . Home with home care DISCHARGE INSTRUCTIONS: 1. As per discharge instructions. ITEMS TO FOLLOWUP ON ON OUTPATIENT: 1. Follow with PCP and cardiology as an outpatient. DISCHARGE CONDITION: Stable. TIME SPENT ON DISCHARGE: 32 minutes. Vital Signs/I&Os Vital Signs Date Time Temp Pulse Resp B/P (MAP) Pulse Ox O2 Delivery O2 Flow Rate FiO2 04/14/19 10:00 98.3 68 18 121/62 (81) 100 Room Air I&O- Last 24 Hours up to 6 AM 04/14/19 06:00 Intake Total 640 ml Output Total 1250 ml Balance -610 ml Laboratory Data Labs 24H Laboratory Tests 2 04/13/19 12:35: Bedside Glucose (Misc Panel) 92 04/13/19 17:10: Bedside Glucose (Misc Panel) 159H 04/13/19 20:06: Bedside Glucose (Misc Panel) 189H 04/14/19 06:09: Immature Granulocyte % (Auto) 0.9, Neutrophils (%) (Auto) 67.3H, Lymphocytes (%) (Auto) 18.2L, Monocytes (%) (Auto) 11.6H, Eosinophils (%) (Auto) 1.6, Basophils (%) (Auto) 0.4, Neutrophils # (Auto) 5.5, Lymphocytes # (Auto) 1.5, Monocytes # (Auto) 1.0H, Eosinophils # (Auto) 0.1, Basophils # (Auto) 0.0, Nucleated Red Blood Cells % (auto) 0.0, Anion Gap 7L, Glomerular Filtration Rate > 60.0, Estimated Mean Plasma Glucose 203H, Hemoglobin A1c 8.7, Calcium Level 8.4L, Total Bilirubin 0.7#, Aspartate Amino Transf (AST/SGOT) 14, Alanine Aminotransferase (ALT/SGPT) 57, Alkaline Phosphatase 90, Total Protein 6.2L, Albumin 3.5, Albumin/Globulin Ratio 1.30 CBC/BMP Laboratory Tests 04/14/19 06:09 FSBS Laboratory Tests Test 04/13/19 12:35 04/13/19 17:10 04/13/19 20:06 Range/Units Bedside Glucose (Misc Panel) 92 159 189 83-110 MG/DL Discharge Medications Scheduled Amlodipine/Atorvastatin (Amlodipine-Atorvast 5-10 mg) 1 Tab Tab, 1 TAB PO DAILY, (Reported) B-Complex with Vitamin C (Vitamin B-Complex with Vit C) 1 Each Tablet, 1 TAB PO DAILY, (Reported) Benzonatate (Benzonatate) 100 Mg Cap, 200 MG PO BID, (Reported) Bethanechol Chloride (Bethanechol Chloride) 25 Mg Tablet, 25 MG PO ACHS, (Reported) Furosemide (Furosemide) 40 Mg Tablet, 40 MG PO DAILY Insulin Detemir (Levemir) 100 Unit/1 Ml Vial, 18 UNITS SC QHS, (Reported) Magnesium (Magnesium) 250 Mg Tablet, 500 MG PO DAILY, (Reported) Metoprolol Tartrate (Metoprolol Tartrate) 25 Mg Tablet, 12.5 MG PO BID Multivitamin/Iron/Folic Acid (Multivitamin with Iron Tablet) 1 Each Tablet, 1 EACH PO DAILY, (Reported) Omeprazole (Omeprazole) 40 Mg Cap, 40 MG PO ACB, (Reported) Potassium Chloride (Klor-Con M20) 20 Meq Tab.er.prt, 1 TAB PO DAILY Rivaroxaban (Xarelto) 15 Mg Tablet, 15 MG PO DAILY@18 Sitagliptin Phosphate (Januvia) 100 Mg Tablet, 100 MG PO DAILY, (Reported) Travoprost (Travatan Z) 0.004% 2.5ML Drops, 1 DROP OU QHS, (Reported) Trospium Chloride (Trospium Chloride ER) 60 Mg Cap, 60 MG PO DAILY, (Reported) [hylands leg cramp pm] , 4 TABS PO QHS, (Reported) Scheduled PRN Acetaminophen (Acetaminophen) 500 Mg Tablet, 500 MG PO PRN PRN for PAIN, (Reported) Aspirin (Aspirin EC) 325 Mg Tab, 325 MG PO DAILY PRN for PAIN, (Reported) Allergies Coded Allergies: brinzolamide (Verified Allergy, Intermediate, eye swelling, 03/15/19) brimonidine (Verified Adverse Reaction, Unknown, IRRITATION TO SKIN, 04/10/19) gabapentin (Verified Adverse Reaction, Unknown, ANGRY, IRRITABLE, 04/10/19) timolol (Verified Adverse Reaction, Unknown, IRRITATION TO SKIN, 04/10/19) LÓPEZ HANSON MD Apr 14, 2019 12:04
== END 2019-04-14 13:04 | disposition home health service (06) | DRG 308 ==
LOC: M ED 10:23 → M ED INP 10:24 → ENRESERV 15:18 → M PCU 16:59 → OBSVTOIN 04-11 08:00 → M MSPAV 04-13 21:55
PROVIDERS: ADMIT Internal Medicine; ATTEND Internal Medicine
DX: I48.91 Unspecified atrial fibrillation (principal); I50.31 Acute diastolic (congestive) heart failure; E11.319 Type 2 diabetes mellitus with unspecified diabetic retinopathy without macular edema; I11.0 Hypertensive heart disease with heart failure; E78.5 Hyperlipidemia, unspecified; G43.909 Migraine, unspecified, not intractable, without status migrainosus; K21.9 Gastro-esophageal reflux disease without esophagitis; R32 Unspecified urinary incontinence; R15.9 Full incontinence of feces; Z79.4 Long term (current) use of insulin; Z79.899 Other long term (current) drug therapy; Z88.8 Allergy status to other drugs, medicaments and biological substances; Z98.41 Cataract extraction status, right eye; Z98.42 Cataract extraction status, left eye

== ENCOUNTER 2019-05-08 16:28 | Inpatient (IN) | payer MEDICARE, OTHER ==
[~2019-05-08] VITALS: Ht 144.8 cm; Wt 59.1 kg
[~2019-05-08 16:28] MED LIST changes: +FURO40TA2 PO; +KLOR20TA42 PO; +METO1TAB87 PO; +MULT1TAB55 PO; +TRAV04OPD OU; +XARE15TA PO; +[UNRECOGNIZED DRUG - OTHER] PO
[2019-05-08 17:11] LABS: BASO % 0.4 % (0.0-1.0); EOS # 0.1 10^3/uL (0.0-0.5); EOS % 1.2 % (0.0-3.0); HEMATOCRIT 38.4 % (36.0-47.0); HEMOGLOBIN 12.4 g/dl (12.0-15.5); LYMPH # 2.2 10^3/uL (1.5-5.0); LYMPH % 22.6 % (24.0-44.0); MEAN CORPUSCULAR HEMOGLOBIN 28.8 pg (27.0-33.0); MEAN CORPUSCULAR HGB CONC 32.3 g/dl (32.0-36.5); MEAN CORPUSCULAR VOLUME 89.1 fl (80.0-96.0); MONO # 0.9 10^3/uL (0.0-0.8); MONO % 9.2 % (0.0-5.0); NEUTROPHILS # 6.4 10^3/uL (1.5-8.5); NEUTROPHILS % 65.8 % (36.0-66.0); PLATELET COUNT, AUTOMATED 221 10^3/uL (150-450); RED BLOOD COUNT 4.31 10^6/uL (4.00-5.40); WHITE BLOOD COUNT 9.7 10^3/uL (4.0-10.0)
[2019-05-08] MEDS ORDERED: XARE15TA PO ×2 (17:39→21:23)
[2019-05-08 17:53] LABS: ALBUMIN 3.9 GM/DL (3.2-5.2); ALT/SGPT 54 U/L (12-78); BILIRUBIN,DIRECT 0.2 MG/DL (0.0-0.2); BILIRUBIN,TOTAL 0.5 MG/DL (0.2-1.0); BLOOD UREA NITROGEN 34 MG/DL (7-18); CARBON DIOXIDE LEVEL 27 MEQ/L (21-32); CHLORIDE LEVEL 106 MEQ/L (98-107); CK-MB VALUE MASS < 1.0 NG/ML (<3.6); CPK CREATINE PHOSPHOKINASE 31 U/L (26-192); GLUCOSE, FASTING 159 MG/DL (70-100); MB/CK RELATIVE INDEX 3.23 (< OR =4); NT-PRO BNP 3797 PG/ML (<450); POTASSIUM SERUM 4.5 MEQ/L (3.5-5.1); SODIUM LEVEL 140 MEQ/L (136-145); TOTAL PROTEIN 6.6 GM/DL (6.4-8.2); TROPONIN I < 0.02 NG/ML (< 0.10)
[2019-05-08] MEDS ORDERED: ISOVUE-370 76% 100ML VIAL (Q9967) As Ordered ONE (18:01)
--- NOTE | 2019-05-08 18:01 | REP ---
HISTORY: Cough and dyspnea. COMPARISON: Multiple, the latest a portable examination of 04/13/2019. There is bilateral CP angle blunting, left greater than right. This has developed since the last exam. There is mild cardiomegaly. There is no change in the osseous structures. IMPRESSION: Small to moderate sized bilateral pleural effusions. Early bilateral pneumonia cannot be ruled out. Electronically Signed by Jayme Bar DO 05/08/2019 07:30 P
[2019-05-08 18:32] LABS: INFLUENZA A AMPLIFICATION NEGATIVE (NEGATIVE); INFLUENZA B AMPLIFICATION NEGATIVE (NEGATIVE)
--- NOTE | 2019-05-08 19:15 | REPVR ---
PROCEDURE INFORMATION: Exam: CT Angiography Chest With Contrast Exam date and time: 05/08/2019 6:09 PM Age: 84 years old Clinical indication: Shortness of breath TECHNIQUE: Imaging protocol: Computed tomographic angiography of the chest with intravenous contrast. 3D rendering: MIP reconstructed images were created by the technologist. Radiation optimization: All CT scans at this facility use at least one of these dose optimization techniques: automated exposure control; mA and/or kV adjustment per patient size (includes targeted exams where dose is matched to clinical indication); or iterative reconstruction. Contrast material: ISOVUE 370; Contrast volume: 75 ml; Contrast route: IV; COMPARISON: CT ANGIO CHEST 04/10/2019 3:54 PM CR - Chest, 2 view PA, Lat 05/08/2019 5:01:08 PM (The reports from these studies were not available for review at the time of this interpretation.) FINDINGS: Pulmonary arteries: No pulmonary embolism. Aorta: There is no thoracic aortic aneurysm, pseudoaneurysm, penetrating atherosclerotic ulcer, intramural hematoma, or dissection. There are extensive atherosclerotic calcifications. Other arteries: The splenic artery arises directly from the abdominal aorta just to left the left of the origin of the celiac artery. There are extensive calcifications of the splenic artery. 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 No rupture of the aneurysm is noted. Thyroid: There is a 15 mm nodule in the isthmus of the thyroid gland, which is similar in appearance compared to the prior CTA chest on 04/10/2019. The thyroid gland was not fully imaged. Lungs: There is compressive atelectasis in both lower lobes. No lung consolidation is noted. The major airways are patent. No emphysematous changes are seen. There is a mosaic attenuation pattern in both lungs, which can be seen with air trapping. Pleural space: There are small bilateral pleural effusions that measure water density and are not loculated. No pneumothorax or calcified pleural plaques are noted. Heart: No cardiomegaly is noted. There is a small water density pericardial effusion. Coronary artery calcifications are present. The ratio of the diameter of the right ventricle to the diameter of the left ventricle measures less than 1, which is within normal limits and there is no evidence for a right ventricular strain. Mediastinum: No pneumomediastinum or mediastinal fluid collection is noted. Gallbladder and bile ducts: There has been a cholecystectomy. There is no fluid collection in the gallbladder fossa. No dilation of the bile ducts is noted. Pancreas: There is fatty infiltration of the pancreas. The head of the pancreas was not fully imaged. Spleen: Normal. No splenomegaly is noted. Adrenals: Normal. No adrenal mass is noted. Lymph nodes: No enlarged lymph nodes. Bones/joints: No fracture or dislocation is noted. There is no suspicious osteolytic or osteoblastic lesion. There are endplate spurs in the thoracic spine. Soft tissues: Unremarkable. IMPRESSION: 1. No pulmonary embolism. 2. Small bilateral pleural effusions with associated compressive atelectasis in both lower lobes. 3. Mosaic attenuation pattern in both lungs, which can be seen with air trapping. 4. 15 mm nodule in the isthmus of the thyroid gland, which is stable compared to the prior CTA chest on 04/10/2019. Further evaluation with a thyroid ultrasound is recommended, which can be performed on a nonemergent basis. 5. 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 No rupture of the aneurysm. COMMENTS: Consistent with the [employer] [place] [employer]'s Incidental Findings Committee white paper (J Am Teresa Radiol 2015): In patients aged 35 years and older with an incidental thyroid nodule equal to or greater than 1.[address], MRI or extrathyroidal US, further evaluation with dedicated thyroid US is recommended for patients with normal life expectancy and without comorbidities. For smaller nodules without suspicious features, no further evaluation or follow up is recommended. Electronically signed by: Chapito Barahona On 05/08/2019 19:14:43 PM
[2019-05-08] MEDS ORDERED: FUROSEMIDE 40 MG/4 ML VIAL (J1940) IV ONE (20:30)
[2019-05-08] MEDS ORDERED: GLUCAGON FOR INJ 1 MG VIAL (J1610) SC PRN (20:45)
[2019-05-08] MEDS ORDERED: MOM 30ML SUSPENSION UDC PO PRN (20:45)
[2019-05-08] MEDS ORDERED: MAALOX 30 ML SUSP *UDC PO PRN (20:45)
[2019-05-08] MEDS ORDERED: DEXTROSE 50% 50 ML SYRINGE IV PRN (20:45)
[2019-05-08] MEDS ORDERED: GLUCOSE 4 GM CHEW TABLET PO PRN (20:45)
--- NOTE | 2019-05-08 20:46 | HPEPDOC ---
[facility] Medical History & Physical Date of Admission May 08, 2019 Date of Service: May 08, 2019 Primary Care Physician: NAVNEET ARZOLA MD [facility] Attending Physician: NAVA PERALTA MD History and Physical TIME OF SERVICE: 9:48 PM CHIEF COMPLAINT: "I was having problems breathing." HISTORY OF PRESENT ILLNESS: This is an 84-year-old female who came to the hospital for evaluation because she "was having problems breathing." She has been short of breath and coughing for a few days. Her home RN checked her vitals and examined her and stated that her "lungs were full of water". They called Dr. Yao who told her to come to the hospital. She denies having chest pain, having lower extremity swelling, feeling like she has gained weight a month missing any doses of her medications or having hyperglycemia. Her son, arranges all of her medications for her. Her a.m. sugars have been in between the 110 in the 130. Occasionally before lunch they're higher than 200. She occasionally has palpitations. Per Dr. Conteh she was given Lasix; he has voided several times REVIEW OF SYSTEMS: 12 point review of systems negative except as listed in HPI PMH/PSH DNR/DNI / Her daughter who lives in [place] is her POA atrial fibrillation Severe pulmonary hypertension mild age-related hyperinflation and diffusion impairment - PFTs 2012 / asthma? diabetes mellitus w diabetic retinopathy A1C 8.7% hypertension hyperlipidemia GERD urinary incontinence / fecal incontinence diverticulosis chronic sinusitis placement of temporary generator for fecal and urinary incontinence bilateral cataract surgery bowel perforation surgery hysterectomy cholecystectomy esophageal wrap SH - tobacco onE of her sons lives with her ALLERGIES: Please see below. HOME MEDICATIONS: Please see below. Vital Signs Date Time Temp Pulse Resp B/P (MAP) Pulse Ox O2 Delivery O2 Flow Rate FiO2 05/08/19 16:31 72 20 176/76 98 Room Air 05/08/19 16:44 97.9 PHYSICAL EXAMINATION: GEN: Obese/ well developed/ NAD INTEGUMENT: not flushed/ not jaundice HEENT: NCAT / lips acyanotic /mucus membranes moist and pink CVS: RRR/NMRG/ no lower extremity edema LUNGS: Breath sounds are diminished ABDOMEN: Contour (obese) / soft & not tender with palpation MSK/EXTREMITIES: range of motion intact in all 4 extremities NEURO: CN 2-12 are grossly intact / speech is not dysarthric PSYCH: alert and oriented / able to understand and follow all commands LABORATORY DATA: Anion Gap 7L, Glomerular Filtration Rate 56.0, Calcium Level 9.0, Total Bilirubin 0.5, Direct Bilirubin 0.2, Aspartate Amino Transf (AST/SGOT) 30, Alanine Aminotransferase (ALT/SGPT) 54, Alkaline Phosphatase 116, Total Creatine Kinase 31, Creatine Kinase MB < 1.0, Creatine Kinase MB Relative Index 3.23, Troponin I < 0.02, GM-Xzw-D-Type Natriuretic Peptide 3797H, Total Protein 6.6, Albumin 3.9, Albumin/Globulin Ratio 1.44, Thyroid Stimulating Hormone (TSH) 2.320, Influenza Type A (RT-PCR) NEGATIVE, Influenza Type B (RT-PCR) NEGATIVE IMAGING: Chest x-ray "IMPRESSION: Small to moderate sized bilateral pleural effusions. Early bilateral pneumonia cannot be ruled out." CTA chest "IMPRESSION: 1. No pulmonary embolism. 2. Small bilateral pleural effusions with associated compressive atelectasis in both lower lobes. 3. Mosaic attenuation pattern in both lungs, which can be seen with air trapping. 4. 15 mm nodule in the isthmus of the thyroid gland, which is stable compared to the prior CTA chest on 04/10/2019. Further evaluation with a thyroid ultrasound is recommended, which can be performed on a nonemergent basis. 5. 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 No rupture of the aneurysm." MICROBIOLOGY: Please see below. ASSESSMENT: Ms. Raines is an 84-year-old with a history of A. fib, diastolic CHF, age-related lung hyperinflation, diabetes, retinopathy, HTN, and GERD who is admitted for evaluation of shortness of breath, possibly due to fluid overload due to acute diastolic CHF. PLAN: 1. Dyspnea, possibly due to acute diastolic CHF / acute worsening of her pulmona ry hypertension At the time of my evaluation, the patient did not have extremity edema and was not acutely short of breath, but she had received Lasix. She reports having palpitations earlier on in the day. It is plausible that she was rapid A. fib which can cause shortness of breath and could have also triggered fluid overload. Previous records reported that she had asthma, but her PFTs done in 2013 reported age-related hyperinflation and diffusion impairment. Today, her BNP was greater than [address] showed bilateral pleural effusions. Her echo done 1 month ago showed severe pulmonary hypertension. Since her H2PEF score is 8 there is greater than 90% probability that she has HFpEF Plan: Admit to PCU/ follow-up I's and O's and daily weights, restrict salt to 2 g of fluid to 2 L/Lasix 40 mg IV every 4 hours 2. Atrial fibrillation. EKG showed A. fib with a heart rate of 85 - metoprolol and Xarelto 3. Type II IDDM with retinopathy A1c 8.7 - f/u accuchecks / hypoglycemia p rotocol / sliding scale insulin / hold oral anti-glycemics / Levemir 18 units daily at bedtime 4. Chronic HTN - amlodipine 5. Unsteady gait, uses a walker - PT consult for early mobilization / fall pr ecautions DVT PROPHYLAXIS: N/A. She is on blood thinners for A. fib DISPOSITION: Home after more than 2 midnight's stay Home Medications Scheduled Amlodipine/Atorvastatin (Amlodipine-Atorvast 5-10 mg) 1 Tab Tab, 1 TAB PO DAILY B-Complex with Vitamin C (Vitamin B-Complex with Vit C) 1 Each Tablet, 1 TAB PO DAILY Benzonatate (Benzonatate) 100 Mg Cap, 200 MG PO BID Bethanechol Chloride (Bethanechol Chloride) 25 Mg Tablet, 25 MG PO ACHS Furosemide (Furosemide) 40 Mg Tablet, 40 MG PO DAILY Insulin Detemir (Levemir) 100 Unit/1 Ml Vial, 18 UNITS SC QHS Magnesium Oxide (Magnesium Oxide) 500 Mg Tablet, 500 MG PO DAILY Metoprolol Tartrate (Metoprolol Tartrate) 25 Mg Tablet, 12.5 MG PO BID Multivitamins (Thera M Plus Tablet) 1 Each Tablet, 1 TAB PO DAILY Omeprazole (Omeprazole) 40 Mg Cap, 40 MG PO ACB Potassium Chloride (Potassium Chloride) 20 Meq Tab.er.prt, 20 MEQ PO DAILY Rivaroxaban (Xarelto) 15 Mg Tablet, 15 MG PO QPM TAKES AT DINNERTIME Sitagliptin Phosphate (Januvia) 100 Mg Tablet, 100 MG PO DAILY Travoprost (Travatan Z) 0.004% 2.5ML Drops, 1 DROP OU QHS Trospium Chloride (Trospium Chloride ER) 60 Mg Cap, 60 MG PO DAILY [Hylands Leg Cramp Pm] , 4 TABS PO QHS Allergies Coded Allergies: brinzolamide (Verified Allergy, Intermediate, eye swelling, 05/08/19) brimonidine (Verified Adverse Reaction, Unknown, IRRITATION TO SKIN, 05/08/19) gabapentin (Verified Adverse Reaction, Unknown, ANGRY, IRRITABLE, 05/08/19) timolol (Verified Adverse Reaction, Unknown, IRRITATION TO SKIN, 05/08/19) A-FIB/CHADSVASC A-FIB History Current/History of A-Fib/PAF?: Yes Current PO Anticoag Therapy: Yes NAVA PERALTA MD May 08, 2019 20:46
[2019-05-08] MEDS: FUROSEMIDE 40 MG/4 ML VIAL (J1940) IV SCH ×2 (20:53→23:47)
[2019-05-08] MEDS: HumaLOG INSULIN (NovoLOG) PER UNIT SC SCH (21:00)
[2019-05-08] MEDS ORDERED: HumaLOG INSULIN (NovoLOG) PER UNIT SC SCH (21:00)
[2019-05-08] MEDS: LEVEMIR (INSULIN DETEMIR) 1 UNITS/0.01ML SC SCH (21:00)
[2019-05-08] MEDS: LATANOPROST 0.005% OPHTH SOLN 2.5 ML OU SCH (21:00)
[2019-05-08] MEDS ORDERED: VITMTA PO (21:23)
[2019-05-08] MEDS ORDERED: METO25TA4 PO (21:23)
[2019-05-08] MEDS ORDERED: MAGN500T12 PO (21:23)
[2019-05-08] MEDS ORDERED: POTA20TA6 PO (21:23)
[2019-05-08] MEDS ORDERED: HYLANDS LEG CRAMP PM PO (21:23)
[2019-05-08] MEDS ORDERED: FURO40TA2 PO (21:23)
[2019-05-08 21:46] LABS: MAGNESIUM LEVEL 2.2 MG/DL (1.8-2.4); PHOSPHORUS LEVEL 3.6 MG/DL (2.5-4.9)
[2019-05-08] MEDS ORDERED: methylPREDNISolone INJ 125 MG/2 ML VIAL (J2930) IV STA (22:03)
[2019-05-08] MEDS ORDERED: LEVALBUTEROL 1.25 MG/0.5 ML CONCENTRATE NEB INH PRN (22:45)
[2019-05-08 23:16] VITALS: BP 152/80
[2019-05-08] MEDS: BENZONATATE 100 MG CAP PO SCH (23:44)
[2019-05-08] MEDS: METOPROLOL TART 12.5 MG PER 1/2 TAB PO SCH (23:44)
[2019-05-08] MEDS: DOCUSATE SODIUM 100 MG CAP PO SCH (23:47)
[2019-05-09] VITALS (19 sets, daily range): BP systolic 120–137; BP diastolic 60–66; O2SAT 88–98
[2019-05-09] MEDS ORDERED: LEVALBUTEROL 1.25 MG/0.5 ML CONCENTRATE NEB INH SCH
[2019-05-09] MEDS: RAMELTEON 8 MG TAB (ROZEREM) PO SCH ×2 (01:49→20:26)
[2019-05-09] MEDS ORDERED: IPRATROPIUM 0.5MG/ALBUTEROL 2.5MG INH SOL UD 3ML (DUONEB)(J7620) NEB SCH (02:00)
[2019-05-09] MEDS: FUROSEMIDE 40 MG/4 ML VIAL (J1940) IV SCH ×3 (04:06→20:27)
[2019-05-09] MEDS: ACETAMINOPHEN TAB 650MG DOSE (2X325MG) PO PRN (04:12)
[2019-05-09 05:34] LABS: HEMATOCRIT 35.1 % (36.0-47.0); HEMOGLOBIN 11.3 g/dl (12.0-15.5); MEAN CORPUSCULAR HEMOGLOBIN 28.3 pg (27.0-33.0); MEAN CORPUSCULAR HGB CONC 32.2 g/dl (32.0-36.5); PLATELET COUNT, AUTOMATED 183 10^3/uL (150-450); RED BLOOD COUNT 3.99 10^6/uL (4.00-5.40)
[2019-05-09 05:52] LABS: CALCIUM LEVEL 8.9 MG/DL (8.8-10.2); CREATININE FOR GFR 1.04 MG/DL (0.55-1.30); GLOMERULAR FILTRATION RATE 53.5 (>32); POTASSIUM SERUM 3.8 MEQ/L (3.5-5.1)
[2019-05-09] MEDS ORDERED: HumaLOG INSULIN (NovoLOG) PER UNIT SC SCH (07:30)
[2019-05-09] MEDS ORDERED: predniSONE 20 MG TAB PO SCH (09:00)
[2019-05-09] MEDS ORDERED: PREVNAR 13 VACCINE SYRINGE (CPT CODE:90670) IM ONE (09:00)
[2019-05-09] MEDS ORDERED: PANTOPRAZOLE 40MG TAB (PROTONIX) PO SCH (09:00)
[2019-05-09] MEDS ORDERED: FUROSEMIDE 40 MG TAB PO SCH (09:00)
[2019-05-09] MEDS: BENZONATATE 100 MG CAP PO SCH ×2 (09:06→20:27)
[2019-05-09] MEDS: POTASSIUM CHLORIDE 10 MEQ SR TABLET PO SCH (09:06)
[2019-05-09] MEDS: MAGNESIUM OXIDE 400 MG TAB (MAG-OX) PO SCH (09:06)
[2019-05-09] MEDS: METOPROLOL TART 12.5 MG PER 1/2 TAB PO SCH ×2 (09:07→20:27)
[2019-05-09] MEDS: VITAMIN B COMPLEX/VIT C CAP PO SCH (09:07)
[2019-05-09] MEDS: amLODIPine 5 MG TAB PO SCH (09:07)
[2019-05-09] MEDS: DOCUSATE SODIUM 100 MG CAP PO SCH ×2 (09:07→20:30)
[2019-05-09] MEDS: HumaLOG INSULIN (NovoLOG) PER UNIT SC SCH ×4 (09:08→20:31)
[2019-05-09] MEDS ORDERED: SLF 3 ML SYR IV PRN (11:45)
[2019-05-09] MEDS: SLF 3 ML SYR IV SCH ×2 (14:42→20:31)
[2019-05-09] MEDS: RIVAROXABAN 15 MG TAB (XARELTO) PO SCH (18:28)
--- NOTE | 2019-05-09 20:07 | IPNPDOC ---
Date Seen The patient was seen on 05/09/19. Progress Note SUBJECTIVE: 84 y.o female w/ PMH of Afib (on Xarelto), CHF, DM, HTN & GERD was admitted for Acute on chronic heart failure with preserved ejection fracture. Patient has had great urine output with IV Lasix and significant clinical improvement since last night. She continues to have dyspnea with non-productive cough, no other complaints at this time. She denies any CP, N/V/D or abdominal pain. 10 point review of system is negative except for above. OBJECTIVE PHYSICAL EXAMINATION: VITAL SIGNS: Please see below. GENERAL: No distress HEENT: Moist mucus membranes CARDIOVASCULAR: Irregularly irregular, no murmurs appreciated RESPIRATORY: Scattered rhonchi, no wheezing ABDOMINAL: Soft, non-tender, non-distended, +BS EXTREMITIES: trace LE edema NEUROLOGICAL: no focal deficits PSYCHOLOGICAL: calm LABORATORY DATA, IMAGING STUDIES, MICROBIOLOGY: Please see below. Echocardiogram: Pending DVT prophylaxis ordered?: No ASSESSMENT AND PLAN: 84 y.o female w/ multiple medical comorbidities admitted for CHF exacerbation. PROBLEMS: 1. Acute on chronic heart failure with preserved ejection fraction: Good urine output, decrease Lasix to 40 mg IV BID, potassium supplementation, monitor Int anthony & output, fluid restriction, weigh daily, TTE from last month showing significantly elevated right sided pressures. 2. Chronic Afib: Continue Metoprolol for rate control & Xarelto for anticoagul ation. 3. HTN: continue Norvasc & metoprolol. 4. HLD - continue statin 5. DM - Levemir 18 units qHS along with sliding scale insulin coverage with meals & at bedtime. DVT Prophylaxis - Xarelto GI Prophylaxis - not needed VS, I&O, 24H, Fishbone Vital Signs/I&O Vital Signs Date Time Temp Pulse Resp B/P (MAP) Pulse Ox O2 Delivery O2 Flow Rate FiO2 05/09/19 16:00 96 Room Air 05/09/19 16:00 97.3 74 18 130/60 (83) I&O- Last 24 Hours up to 6 AM 05/09/19 06:00 Intake Total 120 ml Output Total 1500 ml Balance -1380 ml Laboratory Data 24H LABS Laboratory Tests 2 05/08/19 23:43: Bedside Glucose (Misc Panel) 150H 05/09/19 04:52: Nucleated Red Blood Cells % (auto) 0.0, Anion Gap 12, Glomerular Filtration Rate 53.5, Calcium Level 8.9, Magnesium Level 2.0 05/09/19 11:37: Bedside Glucose (Misc Panel) 256H 05/09/19 17:46: Bedside Glucose (Misc Panel) 268H CBC/BMP Laboratory Tests 05/09/19 04:52 VISHNU ALMONTE MD May 09, 2019 20:06
[2019-05-09] MEDS: LEVEMIR (INSULIN DETEMIR) 1 UNITS/0.01ML SC SCH (20:27)
[2019-05-09] MEDS: LATANOPROST 0.005% OPHTH SOLN 2.5 ML OU SCH (20:34)
--- NOTE | 2019-05-09 20:50 | ECGEPIP ---
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
[2019-05-09] MEDS: [UNRECOGNIZED DRUG - OTHER] PO SCH (21:00)
[2019-05-10] VITALS (8 sets, daily range): BP systolic 118–144; BP diastolic 54–78; O2SAT 92
[2019-05-10] MEDS: ACETAMINOPHEN TAB 650MG DOSE (2X325MG) PO PRN ×2 (00:21→04:58)
[2019-05-10] MEDS: SLF 3 ML SYR IV SCH ×3 (06:38→21:13)
[2019-05-10 07:03] LABS: HEMATOCRIT 35.4 % (36.0-47.0); HEMOGLOBIN 11.7 g/dl (12.0-15.5); MEAN CORPUSCULAR HEMOGLOBIN 28.7 pg (27.0-33.0); MEAN CORPUSCULAR HGB CONC 33.1 g/dl (32.0-36.5); PLATELET COUNT, AUTOMATED 199 10^3/uL (150-450); RED BLOOD COUNT 4.07 10^6/uL (4.00-5.40); WHITE BLOOD COUNT 11.9 10^3/uL (4.0-10.0)
[2019-05-10 07:29] LABS: CALCIUM LEVEL 8.5 MG/DL (8.8-10.2); CREATININE FOR GFR 1.36 MG/DL (0.55-1.30); GLOMERULAR FILTRATION RATE 39.2 (>32); MAGNESIUM LEVEL 2.5 MG/DL (1.8-2.4); PHOSPHORUS LEVEL 4.4 MG/DL (2.5-4.9); POTASSIUM SERUM 3.8 MEQ/L (3.5-5.1)
[2019-05-10] MEDS: HumaLOG INSULIN (NovoLOG) PER UNIT SC SCH ×4 (07:30→21:00)
[2019-05-10] MEDS: DOCUSATE SODIUM 100 MG CAP PO SCH ×2 (08:03→21:00)
[2019-05-10] MEDS: POTASSIUM CHLORIDE 10 MEQ SR TABLET PO SCH (08:03)
[2019-05-10] MEDS: MAGNESIUM OXIDE 400 MG TAB (MAG-OX) PO SCH (08:03)
[2019-05-10] MEDS: METOPROLOL TART 12.5 MG PER 1/2 TAB PO SCH ×2 (08:03→21:10)
[2019-05-10] MEDS: BENZONATATE 100 MG CAP PO SCH ×2 (08:03→21:11)
[2019-05-10] MEDS: VITAMIN B COMPLEX/VIT C CAP PO SCH (08:03)
[2019-05-10] MEDS: amLODIPine 5 MG TAB PO SCH (08:04)
[2019-05-10] MEDS: FUROSEMIDE 40 MG/4 ML VIAL (J1940) IV SCH ×2 (08:06→21:10)
[2019-05-10] MEDS: RIVAROXABAN 15 MG TAB (XARELTO) PO SCH (18:12)
[2019-05-10] MEDS: [UNRECOGNIZED DRUG - OTHER] PO SCH (21:11)
[2019-05-10] MEDS: RAMELTEON 8 MG TAB (ROZEREM) PO SCH (21:11)
[2019-05-10] MEDS: LATANOPROST 0.005% OPHTH SOLN 2.5 ML OU SCH (21:12)
[2019-05-10] MEDS: LEVEMIR (INSULIN DETEMIR) 1 UNITS/0.01ML SC SCH (21:12)
--- NOTE | 2019-05-10 22:45 | IPNPDOC ---
Date Seen The patient was seen on 05/10/19. Progress Note SUBJECTIVE: 84 y.o female w/ PMH of Afib (on Xarelto), CHF, DM, HTN & GERD was admitted for Acute on chronic heart failure with preserved ejection fracture. Patient has had great urine output with IV Lasix and significant clinical improvement since last night. She continues to have dyspnea with non-productive cough, no other complaints at this time. She denies any CP, N/V/D or abdominal pain. 05/10/19 Patient has had good urine output with IV Lasix, significant improvement in dyspnea, no longer requiring supplemental oxygen, comfortable in bed, creatinine has jumped up from yesterday, no other complaints. 10 point review of system is negative except for above. OBJECTIVE PHYSICAL EXAMINATION: VITAL SIGNS: Please see below. GENERAL: No distress HEENT: Moist mucus membranes CARDIOVASCULAR: Irregularly irregular, no murmurs appreciated RESPIRATORY: Scattered rhonchi, no wheezing ABDOMINAL: Soft, non-tender, non-distended, +BS EXTREMITIES: trace LE edema NEUROLOGICAL: no focal deficits PSYCHOLOGICAL: calm LABORATORY DATA, IMAGING STUDIES, MICROBIOLOGY: Please see below. Echocardiogram: Pending DVT prophylaxis ordered?: No ASSESSMENT AND PLAN: 84 y.o female w/ multiple medical comorbidities admitted for CHF exacerbation. PROBLEMS: 1. Acute on chronic heart failure with preserved ejection fraction: Good urine output, continue Lasix to 40 mg IV BID, potassium supplementation, monitor Intake & output, fluid restriction, weigh daily, TTE from last month showing significantly elevated right sided pressures. 2. Chronic Afib: Continue Metoprolol for rate control & Xarelto for anticoagulation. 3. HTN: continue Norvasc & metoprolol. 4. HLD - continue statin 5. DM - Levemir 18 units qHS along with sliding scale insulin coverage with meals & at bedtime. 6. Acute kidney injury - related to IV Lasix, frequency has been decreased from yesterday, will monitor and adjust Lasix as needed. DVT Prophylaxis - Xarelto GI Prophylaxis - not needed VS, I&O, 24H, Fishbone Vital Signs/I&O Vital Signs Date Time Temp Pulse Resp B/P (MAP) Pulse Ox O2 Delivery O2 Flow Rate FiO2 05/10/19 21:10 69 144/78 05/10/19 18:00 97.9 16 97 Room Air I&O- Last 24 Hours up to 6 AM 05/10/19 06:00 Intake Total 1200 ml Output Total 975 ml Balance 225 ml Laboratory Data 24H LABS Laboratory Tests 2 05/10/19 06:34: Nucleated Red Blood Cells % (auto) 0.0, Anion Gap 8, Glomerular Filtration Rate 39.2, Calcium Level 8.5L, Phosphorus Level 4.4#, Magnesium Level 2.5H 05/10/19 12:56: Bedside Glucose (Misc Panel) 89 05/10/19 17:03: Bedside Glucose (Misc Panel) 141H 05/10/19 20:25: Bedside Glucose (Misc Panel) 211H CBC/BMP Laboratory Tests 05/10/19 06:34 VISHNU ALMONTE MD May 10, 2019 22:45
[2019-05-11] VITALS (7 sets, daily range): BP systolic 115–154; BP diastolic 59–81; O2SAT 93
[2019-05-11] MEDS: ACETAMINOPHEN TAB 650MG DOSE (2X325MG) PO PRN (03:06)
[2019-05-11 06:02] LABS: HEMOGLOBIN 11.9 g/dl (12.0-15.5); MEAN CORPUSCULAR HEMOGLOBIN 28.7 pg (27.0-33.0); MEAN CORPUSCULAR HGB CONC 33.1 g/dl (32.0-36.5); MEAN CORPUSCULAR VOLUME 86.7 fl (80.0-96.0); PLATELET COUNT, AUTOMATED 201 10^3/uL (150-450); RED BLOOD COUNT 4.15 10^6/uL (4.00-5.40); WHITE BLOOD COUNT 9.4 10^3/uL (4.0-10.0)
[2019-05-11] MEDS: SLF 3 ML SYR IV SCH (06:14)
[2019-05-11 06:15] LABS: BLOOD UREA NITROGEN 41 MG/DL (7-18); CALCIUM LEVEL 8.1 MG/DL (8.8-10.2); CARBON DIOXIDE LEVEL 31 MEQ/L (21-32); CHLORIDE LEVEL 105 MEQ/L (98-107); CREATININE FOR GFR 0.93 MG/DL (0.55-1.30); GLOMERULAR FILTRATION RATE > 60.0 (>32); GLUCOSE, FASTING 53 MG/DL (70-100); POTASSIUM SERUM 3.6 MEQ/L (3.5-5.1); SODIUM LEVEL 141 MEQ/L (136-145)
[2019-05-11] MEDS: HumaLOG INSULIN (NovoLOG) PER UNIT SC SCH ×2 (07:30→12:27)
[2019-05-11] MEDS: BENZONATATE 100 MG CAP PO SCH (08:22)
[2019-05-11] MEDS: POTASSIUM CHLORIDE 10 MEQ SR TABLET PO SCH (08:22)
[2019-05-11] MEDS: DOCUSATE SODIUM 100 MG CAP PO SCH (08:22)
[2019-05-11] MEDS: MAGNESIUM OXIDE 400 MG TAB (MAG-OX) PO SCH (08:22)
[2019-05-11] MEDS: VITAMIN B COMPLEX/VIT C CAP PO SCH (08:23)
[2019-05-11] MEDS: amLODIPine 5 MG TAB PO SCH (08:23)
[2019-05-11] MEDS: METOPROLOL TART 12.5 MG PER 1/2 TAB PO SCH (08:23)
[2019-05-11] MEDS: FUROSEMIDE 40 MG/4 ML VIAL (J1940) IV SCH (08:57)
[2019-05-11] MEDS ORDERED: POTASSIUM CHLORIDE 10 MEQ SR TABLET PO ONE (09:00)
--- NOTE | 2019-05-11 11:51 | DS.PDOC ---
Discharge Summary General Date of Admission May 08, 2019 at 20:36 Date of Discharge 05/11/19 Attending Physician: VISHNU ALMONTE MD Discharge Summary PROCEDURES PERFORMED DURING STAY: None. ADMITTING DIAGNOSES: 1. Acute congestive heart failure with preserved ejection fraction, acute kidney injury. DISCHARGE DIAGNOSES: 1.. Acute congestive heart failure with preserved ejection fraction, acute kidney injury. COMPLICATIONS/CHIEF COMPLAINT: Dyspnea. HISTORY OF PRESENT ILLNESS: 84-year-old female was admitted for acute congestive heart failure with preserved ejection fraction secondary to noncompliance, treated with IV Lasix, had good clinical response, along with fluid restriction. Patient had slight increase in creatinine from IV Lasix, daily Lasix dose was decreased with resolution of acute kidney injury with continued good urine output. Patient is clinically close to her baseline and will be discharged home with outpatient follow-up. Patient's home Lasix will be increased from 40 mg daily to 40 mg twice a day. HOSPITAL COURSE: As above. DISCHARGE MEDICATIONS: Please see below. ALLERGIES: Please see below. OBJECTIVE PHYSICAL EXAMINATION: VITAL SIGNS: Please see below. GENERAL: No distress HEENT: Moist mucus membranes CARDIOVASCULAR: Irregularly irregular, no murmurs appreciated RESPIRATORY: Scattered rhonchi, no wheezing ABDOMINAL: Soft, non-tender, non-distended, +BS EXTREMITIES: trace LE edema NEUROLOGICAL: no focal deficits PSYCHOLOGICAL: calm LABORATORY DATA: Please see below. IMAGING: CT consistent with fluid overload PROGNOSIS: Fair ACTIVITY: As tolerated. 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 DISCHARGE INSTRUCTIONS: 1. As above. DISCHARGE CONDITION: Stable. TIME SPENT ON DISCHARGE: Greater than 33 minutes. Vital Signs/I&Os Vital Signs Date Time Temp Pulse Resp B/P (MAP) Pulse Ox O2 Delivery O2 Flow Rate FiO2 05/11/19 10:32 93 Room Air 05/11/19 10:00 97.7 67 19 115/59 (77) I&O- Last 24 Hours up to 6 AM 05/11/19 06:00 Intake Total 1100 ml Output Total 2400 ml Balance -1300 ml Laboratory Data Labs 24H Laboratory Tests 2 05/10/19 12:56: Bedside Glucose (Misc Panel) 89 05/10/19 17:03: Bedside Glucose (Misc Panel) 141H 05/10/19 20:25: Bedside Glucose (Misc Panel) 211H 05/11/19 05:39: Nucleated Red Blood Cells % (auto) 0.0, Anion Gap 5L, Glomerular Filtration Rate > 60.0, Calcium Level 8.1L 05/11/19 08:56: Bedside Glucose (Misc Panel) 208H CBC/BMP Laboratory Tests 05/11/19 05:39 FSBS Laboratory Tests Test 05/10/19 12:56 05/10/19 17:03 05/10/19 20:25 05/11/19 08:56 Range/Units Bedside Glucose (Misc Panel) 89 141 211 208 83-110 MG/DL Discharge Medications Scheduled Amlodipine/Atorvastatin (Amlodipine-Atorvast 5-10 mg) 1 Tab Tab, 1 TAB PO DAILY, (Reported) B-Complex with Vitamin C (Vitamin B-Complex with Vit C) 1 Each Tablet, 1 TAB PO DAILY, (Reported) Benzonatate (Benzonatate) 100 Mg Cap, 200 MG PO BID, (Reported) Bethanechol Chloride (Bethanechol Chloride) 25 Mg Tablet, 25 MG PO ACHS, (Reported) Furosemide (Furosemide) 40 Mg Tablet, 40 MG PO DAILY, (Reported) Insulin Detemir (Levemir) 100 Unit/1 Ml Vial, 18 UNITS SC QHS, (Reported) Magnesium Oxide (Magnesium Oxide) 500 Mg Tablet, 500 MG PO DAILY, (Reported) Metoprolol Tartrate (Metoprolol Tartrate) 25 Mg Tablet, 12.5 MG PO BID, (Reported) Multivitamins (Thera M Plus Tablet) 1 Each Tablet, 1 TAB PO DAILY, (Reported) Omeprazole (Omeprazole) 40 Mg Cap, 40 MG PO ACB, (Reported) Potassium Chloride (Potassium Chloride) 20 Meq Tab.er.prt, 20 MEQ PO DAILY, (Reported) Rivaroxaban (Xarelto) 15 Mg Tablet, 15 MG PO QPM, (Reported) TAKES AT DINNERTIME Sitagliptin Phosphate (Januvia) 100 Mg Tablet, 100 MG PO DAILY, (Reported) Travoprost (Travatan Z) 0.004% 2.5ML Drops, 1 DROP OU QHS, (Reported) Trospium Chloride (Trospium Chloride ER) 60 Mg Cap, 60 MG PO DAILY, (Reported) [Hylands Leg Cramp Pm] , 4 TABS PO QHS, (Reported) Allergies Coded Allergies: brinzolamide (Verified Allergy, Intermediate, eye swelling, 05/08/19) brimonidine (Verified Adverse Reaction, Unknown, IRRITATION TO SKIN, 05/08/19) gabapentin (Verified Adverse Reaction, Unknown, ANGRY, IRRITABLE, 05/08/19) timolol (Verified Adverse Reaction, Unknown, IRRITATION TO SKIN, 05/08/19) VISHNU ALMONTE MD May 11, 2019 11:51
[2019-05-11] MEDS ORDERED: FURO40TA2 PO (11:52)
[2019-05-11] MEDS ORDERED: INSUDET SC (11:54)
== END 2019-05-11 15:10 | disposition home health service (06) | DRG 292 ==
LOC: M ED 16:28 → EDBD 16:28 → M ED INP 20:36 → ENRESERVDT 22:25 → ENRESERVTM 22:25 → M PCU 23:16 → M MSPAV 05-10 04:11
PROVIDERS: ADMIT Internal Medicine; ATTEND Internal Medicine
DX: I11.0 Hypertensive heart disease with heart failure (principal); N17.9 Acute kidney failure, unspecified; I48.20 Chronic atrial fibrillation, unspecified; I50.33 Acute on chronic diastolic (congestive) heart failure; E11.319 Type 2 diabetes mellitus with unspecified diabetic retinopathy without macular edema; Z91.19 Patient's noncompliance with other medical treatment and regimen; Z79.899 Other long term (current) drug therapy; Z79.4 Long term (current) use of insulin; Z88.8 Allergy status to other drugs, medicaments and biological substances; Z66 Do not resuscitate; I27.20 Pulmonary hypertension, unspecified; K21.9 Gastro-esophageal reflux disease without esophagitis; E78.5 Hyperlipidemia, unspecified; K57.30 Diverticulosis of large intestine without perforation or abscess without bleeding; J32.9 Chronic sinusitis, unspecified; N39.3 Stress incontinence (female) (male); R15.9 Full incontinence of feces; Z98.41 Cataract extraction status, right eye; Z98.42 Cataract extraction status, left eye; R26.89 Other abnormalities of gait and mobility; Z79.01 Long term (current) use of anticoagulants

== ENCOUNTER 2019-08-17 14:24 | Inpatient (IN) | payer MEDICARE, OTHER ==
[~2019-08-17] VITALS: Ht 144.8 cm; Wt 54.5 kg
[~2019-08-17 14:24] MED LIST changes: -BETH1TAB3 PO; +BETH25TA3 PO; -CHILCHW27 PO; +CHILCHW28 PO; +HYLANDS LEG CRAMP PM PO; +MAGN500T12 PO; +METO25TA4 PO; +POTA20TA6 PO; +VITMTA PO
--- NOTE | 2019-08-17 15:45 | REP ---
Portable chest x-ray: Single view. History: Dyspnea and cough. Comparison chest x-ray: May 08, 2019. Findings: Monitoring electrodes overlie the chest. There are clips in right upper quadrant. Left upper quadrant clips are also noted. Cardiomegaly is observed. Pulmonary vasculature is not felt to be increased. Interstitial markings are prominent. No focal infiltrate is seen. The lungs are exposed at a relatively low level of inspiration. Impression: No focal infiltrate. Cardiomegaly and prominent interstitial markings unchanged. Electronically Signed by David Hernandez MD 08/17/2019 03:37 P
[2019-08-17 16:11] LABS: BASO # 0.1 10^3/uL (0.0-0.2); BASO % 0.5 % (0.0-1.0); EOS # 0.1 10^3/uL (0.0-0.5); EOS % 1.1 % (0.0-3.0); HEMATOCRIT 38.9 % (36.0-47.0); HEMOGLOBIN 12.5 g/dl (12.0-15.5); LYMPH % 18.8 % (24.0-44.0); MEAN CORPUSCULAR HEMOGLOBIN 28.5 pg (27.0-33.0); MEAN CORPUSCULAR HGB CONC 32.1 g/dl (32.0-36.5); MEAN CORPUSCULAR VOLUME 88.6 fl (80.0-96.0); MONO # 1.2 10^3/uL (0.0-0.8); MONO % 11.1 % (0.0-5.0); NEUTROPHILS % 66.6 % (36.0-66.0); PLATELET COUNT, AUTOMATED 195 10^3/uL (150-450); RED BLOOD COUNT 4.39 10^6/uL (4.00-5.40); VENOUS BASE EXCESS 1.7 (-2.0-2.0); VENOUS HCO3 25.1 MEQ/L (23.0-27.0); VENOUS PARTIAL PRESSURE CO2 35.7 mmHg (38.0-50.0); VENOUS PARTIAL PRESSURE O2 140.5 mmHg (30.0-50.0); VENOUS PH 7.465 UNITS (7.330-7.430); VENOUS TOTAL CO2 26.2 MEQ/L (24.0-28.0); WHITE BLOOD COUNT 10.5 10^3/uL (4.0-10.0)
[2019-08-17 16:21] LABS: INR 1.51; PROTHROMBIN TIME 17.9 SECONDS (11.8-14.0)
[2019-08-17 16:50] LABS: ALBUMIN 3.9 GM/DL (3.2-5.2); BILIRUBIN,DIRECT 0.3 MG/DL (0.0-0.2); BILIRUBIN,TOTAL 0.5 MG/DL (0.2-1.0); CREATININE FOR GFR 1.15 MG/DL (0.55-1.30); GLOMERULAR FILTRATION RATE 47.6 (>32); POTASSIUM SERUM 3.8 MEQ/L (3.5-5.1); THYROID STIMULATING HORMONE 1.06 uIU/ML (0.358-3.740); THYROXINE (T4) 12.1 UG/DL (4.5-12.0); TOTAL PROTEIN 6.6 GM/DL (6.4-8.2)
[2019-08-17] MEDS ORDERED: FUROSEMIDE 40MG/4ML VIAL (J1940) IV ONE (17:15)
--- NOTE | 2019-08-17 17:34 | HPEPDOC ---
[facility] Medical History & Physical Date of Admission Aug 17, 2019 Date of Service: Aug 17, 2019 Primary Care Physician: NAVNEET ARZOLA MD [facility] Attending Physician: Dayami Mcleod MD History and Physical CHIEF COMPLAINT: worsening shortness of breath HISTORY OF PRESENT ILLNESS: Patient is an 84 y/o F with PMH of diastolic CHF (EF 75%), chronic atrial fibrillation, severe pulmonary hypertension, diabetes mellitus w diabetic retinopathy, hypertension, hyperlipidemia, GERD who presented to [facility] after being brought in by family from primary care provider's office for worsening shortness of breath. Patient admits to increased shortness of breath especially with ambulation and at rest, racing heartbeats that can feel like its "beating out of my chest" . She denies coughing, fevers, chills, recent illnesses, chest pain. She does not normally walk with a walker but recently has needed it due to unsteadiness on feet. No recent falls at home. She complains of bilateral lower ext pain, nobody has told her what is from according to patient. She says she has had it for years. She says pain/cramping is present for 30 mins and then goes away. Patient states that her weakness correlates with her shortness of breath. Patient had a doctor's appointment today with her PCP. Patient's physician was concerned about "crackles in my lungs". Her HCP Kelly Raines was contacted and the patient was brought into the ER for further evaluation. She has history of needing hospitalization for CHF exacerbations. In the ER, VS were stable. CXR was wnl and did not show increased fluid. BNP was elevated at >5K, baseline is <4K. Last echo from 03/2019 showed EF 75%, pulmonary HTN. She was noticeably short of breath with talking and with activity. She required assistance to the restroom after Lasix was administered due to unsteadiness on her feet. Although her BNP was not impressively elevated from her baseline was still evident that the patient had increased shortness of breath from her baseline and required help ambulate in. The patient was admitted for acute CHF exacerbation and increased weakness, unsteadiness requiring physical therapy evaluation. The patient is a DNR/DNI. Her daughter who lives in [place] is her POA REVIEW OF SYSTEMS: CONSTITUTIONAL: Denies unexplained weight gain or weight loss, loss of appetite, fever, night sweats EYES: Denies eye drainage, eye pain, visual changes, dry/irritated eye EARS, NOSE, MOUTH, THROAT: Denies ringing in ears, mouth sores, loose teeth, sore throat, facial numbness or pain NECK: Denies swollen glands CARDIOVASCULAR: Denies chest pains, swelling of feet or legs, pain in legs with walking RESPIRATORY: Denies shortness of breath, night sweats,sputum production, oxygen at home, coughing up blood, cough lasting > 1 month GASTROINTESTINAL: Denies abdominal pain, constipation, bloody stool, diarrhea, heartburn, nausea, vomiting GENITOURINARY: Denies painful urination, bloody urine, frequent urination, urgency, leaking urine, impotence MUSCULOSKELETAL: Denies leg swelling INTEGUMENTARY: Denies rash, itching, new skin lesion, change in existing skin lesion, hair loss or increase, breast changes. NEUROLOGICAL: Denies headaches, dizziness, difficulty walking, numbness or tingling PSYCHIATRIC: Denies depression, anxiety, recurrent bad thoughts, mood swings, hallucinations PAST MEDICAL HISTORY: atrial fibrillation, chronic Severe pulmonary hypertension mild age-related hyperinflation and diffusion impairment - PFTs 2012 / asthma? diabetes mellitus w diabetic retinopathy A1C 8.7% hypertension hyperlipidemia GERD urinary incontinence / fecal incontinence diverticulosis chronic sinusitis PAST SURGICAL HISTORY: placement of temporary generator for fecal and urinary incontinence bilateral cataract surgery bowel perforation surgery hysterectomy cholecystectomy esophageal wrap SOCIAL HISTORY: Smoking history, no history of drug. She drinks a glass of wine nightly. Her sons live with her. She has been using a walker only for the past three weeks, walks only short distances. She fee PCP- Dr. Arzola FAMILY HISTORY: noncontributory ALLERGIES: Please see below. HOME MEDICATIONS: Please see below. VS: Please see below PHYSICAL EXAMINATION: CONSTITUTIONAL: No acute distress, resting comfortably, AAO x 3, short of breath carrying on conversation EYES: PERRLA, EOM intact HENT, MOUTH: Normocephalic, atraumatic, moist mucous membranes, NECK: SUPPLE, no JVD, no lymphadenopathy, no carotid bruit CV: irregularly irregular heart rate, S1S2 normal, no murmurs/rubs/gallops RESPIRATORY: crackles in bilateral posterior lung bases-faint, no rales/rhonchi/wheezes GI: BS positive in 4 quadrants, soft, nontender, nondistended, no rebound or guarding, no organomegaly : Deferred MUSCULOSKELETAL: Normal ROM. No cyanosis, clubbing, swelling, joint deformity, extremity edema INTEGUMENTARY: Intact, no rashes, no lesions, no erythema NEUROLOGIC: Cranial Nerves II-XII are intact, no focal deficits PSYCHIATRIC: Mood and affect are normal LABORATORY DATA: Please see below IMAGING: CXR: No focal infiltrate. Cardiomegaly and prominent interstitial markings unchanged. ASSESSMENT: Patient is an 84 y/o F admitted for acute diastolic CHF exacerbation, weakness, unsteadiness on feet. PLAN: 1. Acute diastolic CHF exacerbation. BNP >5K, higher than baseline. Trop neg, denies chest pain. Increased SOB at rest and ambulation but saturating well on RA. Started on lasix BID, BB, CCB. Close monitoring of I&O, daily wt, 2 gm sodium diet, monitor on tele. F/u repeat echo, daily labs. 2. Increased weakness, unsteadiness. Possibly 2/2 to problem #1. No recent fa lls. Mild leukocytosis so r/o UTI.. F/u electrolytes, daily labs. PT/OT, optimize nutrition. 3. Atrial fibrillation, chronic and controlled currently. Patient states that she often has racing heart and flutterings in the chest. C/w BB, CCB, xarelto. Telemetry 4. DM type II. F/u HbA1c, lipid panel. C/w ISS, AC/HS blood sugar checks, levemir, consistent carb diet. 5. Severe pulmonary HTN. Could be cause of worsening SOB. F/u repeat echo, c/w home medications. 6. Asthma?/diffusion impairment - PFTs 2012. Started on duoneb Q8H and albuterol PRN. Currently saturating well on RA but obviously SOB. 7. HTN. Stable. C/w home meds. 8. HLD. C/w statin. 9. GERD. PPI 10. DVT px. Xarelto DISPOSITION: Admitted under inpatient status. Plan is undetermined at this time for discharge, but hope is she can go home after evaluation by PT/OT. Vital Signs Vital Signs Date Time Temp Pulse Resp B/P (MAP) Pulse Ox O2 Delivery O2 Flow Rate FiO2 08/17/19 16:30 Room Air 08/17/19 15:23 08/17/19 14:26 98.6 61 20 99 Laboratory Data Labs 24H Laboratory Tests 2 08/17/19 15:52: Immature Granulocyte % (Auto) 1.9, Neutrophils (%) (Auto) 66.6H, Lymphocytes (%) (Auto) 18.8L, Monocytes (%) (Auto) 11.1H, Eosinophils (%) (Auto) 1.1, Basophils (%) (Auto) 0.5, Neutrophils # (Auto) 7.0, Lymphocytes # (Auto) 2.0, Monocytes # (Auto) 1.2H, Eosinophils # (Auto) 0.1, Basophils # (Auto) 0.1, Nucleated Red Blood Cells % (auto) 0.0, Prothrombin Time 17.9H, Prothromb Time International Ratio 1.51, Blood Gas Bicarbonate Standard 26.0, Venous Blood pH 7.465H, Venous Blood Partial Pressure CO2 35.7L, Venous Blood Partial Pressure O2 140.5H, Venous Blood Total Carbon Dioxide 26.2, Venous Blood HCO3 25.1, Venous Blood Oxygen Saturation 99.0H, Venous Blood Base Excess 1.7, Anion Gap 10, Glomerular Filtration Rate 47.6, Lactic Acid Level 1.7, Calcium Level 9.0, Total Bilirubin 0.5, Direct Bilirubin 0.3H, Aspartate Amino Transf (AST/SGOT) 27, Alanine Aminotransferase (ALT/SGPT) 33, Alkaline Phosphatase 124H, VP-Ysy-H-Type Natriuretic Peptide 5775H, Total Protein 6.6, Albumin 3.9, Albumin/Globulin Ratio 1.4, Thyroid Stimulating Hormone (TSH) 1.060, Thyroxine (T4) 12.1H 08/17/19 15:53: POC Glucose (Misc Panel) 185H, POC Sodium (Misc Panel) 139, POC Potassium (Misc Panel) 3.7, POC Chloride (Misc Panel) 100, POC Total CO2 (Misc Panel) 26.0, POC Blood Urea Nitrogen (Misc Panel 39H, POC Ionized Calcium (Misc Panel) 4.2L, POC Creatinine (Misc Panel) 1.2, POC Hematocrit (Misc Panel) 40.0 08/17/19 15:56: POC Troponin I (Misc) 0.01 CBC/BMP Laboratory Tests 08/17/19 15:52 Microbiology Microbiology 08/17/19 Blood Culture, Received Pending 08/17/19 Blood Culture, Received Pending 08/17/19 Respiratory Virus Panel (PCR) (CANDELARIA) - Final, Complete Home Medications Scheduled Amlodipine/Atorvastatin (Amlodipine-Atorvast 5-10 mg) 1 Tab Tab, 1 TAB PO DAILY B-Complex with Vitamin C (Vitamin B-Complex with Vit C) 1 Each Tablet, 1 TAB PO DAILY Benzonatate (Benzonatate) 100 Mg Cap, 100 MG PO BID Bethanechol Chloride (Bethanechol Chloride) 25 Mg Tablet, 25 MG PO QHS Fluticasone Propion/Salmeterol (Advair Hfa 230-21 Mcg Inhaler) 12 Gm Hfa.aer.ad, 2 PUFF INH BID Insulin Detemir (Levemir) 100 Unit/1 Ml Vial, 16 UNITS SC QHS Magnesium Oxide (Magnesium Oxide) 500 Mg Tablet, 500 MG PO DAILY Metoprolol Tartrate (Metoprolol Tartrate) 25 Mg Tablet, 25 MG PO BID Multivitamins (Thera M Plus Tablet) 1 Each Tablet, 1 TAB PO DAILY Omeprazole (Omeprazole) 40 Mg Cap, 40 MG PO DAILY Potassium Chloride (Potassium Chloride) 20 Meq Tab.er.prt, 20 MEQ PO DAILY Rivaroxaban (Xarelto) 15 Mg Tablet, 15 MG PO QPM TAKES AT DINNERTIME Sitagliptin Phosphate (Januvia) 100 Mg Tablet, 100 MG PO DAILY Travoprost (Travatan Z) 0.004% 2.5ML Drops, 1 DROP OU QHS Trospium Chloride (Trospium Chloride) 20 Mg Tablet, 20 MG PO TID [Hylands Leg Cramp Pm] , 4 TABS PO QHS Scheduled PRN Albuterol Sulfate (Albuterol Sulfate) 1.25 Mg/3 Ml Vial.neb, 1.25 MG INH BID PRN for SHORTNESS OF BREATH Allergies Coded Allergies: brinzolamide (Verified Allergy, Intermediate, eye swelling, 05/08/19) brimonidine (Verified Adverse Reaction, Unknown, IRRITATION TO SKIN, ) gabapentin (Verified Adverse Reaction, Unknown, ANGRY, IRRITABLE, 05/08/19) timolol (Verified Adverse Reaction, Unknown, IRRITATION TO SKIN, 05/08/19) A-FIB/CHADSVASC A-FIB History Current/History of A-Fib/PAF?: Yes Current PO Anticoag Therapy: Yes Age/Risk Factor Scoring CHADSVASC: CHADSVASC Response (Comments) Value Age Risk Factor Age >/= 75 years old 2 Gender Risk Factor Female 1 Hx of CHF Yes 1 Hx of HTN Yes 1 Hx of Stroke/TIA/or VTE No 0 Hx of Diabetes Yes 1 Hx of Vascular Disease No 0 Total 6 Treatment Treatment ordered: Other Other anticoagulant ordered: Dayami Cooper MD Aug 17, 2019 17:34
[2019-08-17] MEDS ORDERED: INSUDET SC (17:44)
[2019-08-17] MEDS ORDERED: TROS20TA3 PO (17:44)
[2019-08-17] MEDS ORDERED: ADVA230A INH (17:44)
[2019-08-17] MEDS ORDERED: ALBU1.25 INH (17:44)
[2019-08-17] MEDS ORDERED: ALBUTEROL SULFATE 2.5 MG/0.5 ML INH NEB SOLN NEB PRN (18:00)
[2019-08-17] MEDS: ADVAIR HFA 230/21MCG INHALER INH SCH (20:05)
[2019-08-17 20:47] VITALS: BP 145/62
[2019-08-17] MEDS: TROSPIUM 20 MG TAB PO SCH (21:53)
[2019-08-17] MEDS: LATANOPROST 0.005% OPHTH SOLN 2.5 ML OU SCH (21:53)
[2019-08-17] MEDS: LEVEMIR (INSULIN DETEMIR) 1 UNITS/0.01ML SC SCH (21:54)
[2019-08-17] MEDS: METOPROLOL TART 25 MG TABLET PO SCH (21:54)
[2019-08-17] MEDS: BENZONATATE 100 MG CAP PO SCH (21:54)
[2019-08-17] MEDS: RIVAROXABAN 15 MG TAB (XARELTO) PO SCH (21:57)
[2019-08-17 22:00] VITALS: BP 138/65
[2019-08-18] MEDS: FUROSEMIDE 40MG/4ML VIAL (J1940) IV SCH ×2 (05:30→16:21)
[2019-08-18 05:46] LABS: HEMOGLOBIN 12.1 g/dl (12.0-15.5); MEAN CORPUSCULAR HEMOGLOBIN 28.9 pg (27.0-33.0); MEAN CORPUSCULAR HGB CONC 32.7 g/dl (32.0-36.5); MEAN CORPUSCULAR VOLUME 88.5 fl (80.0-96.0); PLATELET COUNT, AUTOMATED 163 10^3/uL (150-450); RED BLOOD COUNT 4.18 10^6/uL (4.00-5.40); WHITE BLOOD COUNT 10.1 10^3/uL (4.0-10.0)
[2019-08-18 06:00] VITALS: BP 131/76
[2019-08-18 06:21] LABS: ALBUMIN 3.5 GM/DL (3.2-5.2); BILIRUBIN,TOTAL 0.6 MG/DL (0.2-1.0); CALCIUM LEVEL 8.4 MG/DL (8.8-10.2); CHOLESTEROL RISK RATIO 2.588 (<5); CREATININE FOR GFR 1.06 MG/DL (0.55-1.30); GLOMERULAR FILTRATION RATE 52.3 (>32); POTASSIUM SERUM 3.3 MEQ/L (3.5-5.1); TOTAL PROTEIN 6.2 GM/DL (6.4-8.2)
[2019-08-18 06:48] LABS: HEMOGLOBIN A1c 10.2 %
[2019-08-18] MEDS: HumaLOG INSULIN (NovoLOG) PER UNIT SC SCH ×4 (07:30→21:00)
[2019-08-18] MEDS: IPRATROPIUM 0.5MG/ALBUTEROL 2.5MG INH SOL UD 3ML (DUONEB) NEB SCH ×3 (08:00→15:23)
[2019-08-18] MEDS: ADVAIR HFA 230/21MCG INHALER INH SCH ×2 (08:00→20:38)
--- NOTE | 2019-08-18 08:06 | ECGEPIP ---
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
[2019-08-18] MEDS ORDERED: DEXTROSE 50% 50 ML SYRINGE IV PRN (08:15)
[2019-08-18] MEDS ORDERED: GLUCOSE 4GM CHEW TABLET PO PRN (08:15)
[2019-08-18] MEDS ORDERED: GLUCAGON INJ 1MG VIAL SC PRN (08:15)
[2019-08-18] MEDS ORDERED: ATORVASTATIN 20 MG TAB PO SCH (09:00)
[2019-08-18] MEDS: METOPROLOL TART 25 MG TABLET PO SCH ×2 (09:13→21:46)
[2019-08-18] MEDS: amLODIPine 5 MG TAB PO SCH (09:13)
[2019-08-18] MEDS: MULTIVITAMINS/MINERALS THERAP 1 TAB PO SCH (09:13)
[2019-08-18] MEDS: POTASSIUM CHLORIDE 10 MEQ SR TABLET PO SCH (09:13)
[2019-08-18] MEDS: ATORVASTATIN 10 MG TAB PO SCH (09:14)
[2019-08-18] MEDS: BENZONATATE 100 MG CAP PO SCH ×2 (09:14→21:46)
[2019-08-18] MEDS: MAGNESIUM OXIDE 400MG TAB (MAG-OX) PO SCH (09:14)
[2019-08-18] MEDS: OMEPRAZOLE 20 MG CAP PO SCH (09:14)
[2019-08-18] MEDS: TROSPIUM 20 MG TAB PO SCH ×3 (09:15→21:46)
[2019-08-18] MEDS: VITAMIN B COMPLEX/VIT C CAP PO SCH (09:19)
[2019-08-18 09:47] LABS: APPEARANCE, URINE CLEAR (CLEAR); BACTERIA, URINE AUTO NEGATIVE (NEGATIVE); BILIRUBIN, URINE AUTO NEGATIVE (NEGATIVE); BLOOD, URINE BLOOD 1+ (NEGATIVE); COLOR, URINE YELLOW (YELLOW); GLUCOSE, URINE (UA) AUTO NEGATIVE (NEGATIVE); KETONE, URINE AUTO NEGATIVE (NEGATIVE); LEUKOCYTE ESTERASE, URINE AUTO TRACE (NEGATIVE); NITRITE, URINE AUTO NEGATIVE (NEGATIVE); PROTEIN, URINE AUTO NEGATIVE (NEGATIVE); RBC, URINE AUTO 2 /HPF (0-3); SPECIFIC GRAVITY URINE AUTO 1.006 (1.002-1.035); SQUAMOUS EPITHELIAL CELL UR AU 1 /HPF (0-6); UROBILINOGEN, URINE AUTO 0.2 mg/dL (0.0-2.0); WBC, URINE AUTO 2 /HPF (0-3)
[2019-08-18] MEDS ORDERED: POTASSIUM CHLORIDE 10 MEQ SR TABLET PO ONE (10:00)
[2019-08-18 14:00] VITALS: BP 124/70
--- NOTE | 2019-08-18 16:53 | IPNPDOC ---
Date Seen The patient was seen on 08/18/19. Progress Note SUBJECTIVE: Did not sleep much last night. Denies shortness of breath increased, chest pain, n/v/d. PT/OT to see today. OBJECTIVE: VITAL SIGNS: Please see below PHYSICAL EXAMINATION: CONSTITUTIONAL: No acute distress, resting comfortably in bed, AAO x 3 EYES: PERRLA, EOM intact HENT, MOUTH: Normocephalic, atraumatic, moist mucous membranes, NECK: SUPPLE, no JVD, no lymphadenopathy, no carotid bruit CV: irregularly irregular heart rate, S1S2 normal, no murmurs/rubs/gallops RESPIRATORY: crackles in bilateral posterior lung bases-faint, no rales/rhonchi/wheezes GI: BS positive in 4 quadrants, soft, nontender, nondistended, no rebound or guarding, no organomegaly : Deferred MUSCULOSKELETAL: Normal ROM. No cyanosis, clubbing, swelling, joint deformity, extremity edema INTEGUMENTARY: Intact, no rashes, no lesions, no erythema NEUROLOGIC: Cranial Nerves II-XII are intact, no focal deficits PSYCHIATRIC: Mood and affect are normal LABORATORY DATA: Please see below IMAGING: CXR: No focal infiltrate. Cardiomegaly and prominent interstitial markings unchanged. ASSESSMENT: Patient is an 84 y/o F admitted for acute diastolic CHF exacerbation, weakness, unsteadiness on feet. PLAN: 1. Acute diastolic CHF exacerbation. C/w on lasix BID, BB, CCB. Close monitoring of I&O, daily wt, 2 gm sodium diet, monitor on tele. F/u repeat echo, daily labs. 2. Weakness, unsteadiness. Possibly 2/2 to problem #1. F/u electrolytes, daily labs. PT/OT, optimize nutrition. 3. Atrial fibrillation, chronic and controlled currently. No events on telemetry over the evening. C/w BB, CCB, xarelto. Telemetry 4. DM type II. BS controlled. HbA1c 10.2 , lipid panel unremarkable. C/w ISS, AC/HS blood sugar checks, levemir, consistent carb diet. 5. Severe pulmonary HTN. Could be cause of worsening SOB. F/u repeat echo, c/w home medications. 6. Asthma?/diffusion impairment - PFTs 2012. Started on duoneb Q8H and albuterol PRN. Currently saturating well on RA but obviously SOB. 7. HTN. Stable. C/w home meds. 8. HLD. C/w statin. 9. GERD. PPI 10. DVT px. Xarelto DISPOSITION: Admitted under inpatient status. Plan is undetermined at this time for discharge, but hope is she can go home after evaluation by PT/OT. VS, I&O, 24H, Fishbone Vital Signs/I&O Vital Signs Date Time Temp Pulse Resp B/P (MAP) Pulse Ox O2 Delivery O2 Flow Rate FiO2 08/18/19 09:13 85 133/62 08/18/19 06:00 97.9 19 97 Room Air I&O- Last 24 Hours up to 6 AM 08/18/19 05:59 Intake Total 450 ml Output Total 725 ml Balance -275 ml Laboratory Data 24H LABS Laboratory Tests 2 08/17/19 21:38: Bedside Glucose (Misc Panel) 292H 08/18/19 05:35: Nucleated Red Blood Cells % (auto) 0.0, Anion Gap 10, Glomerular Filtration Rate 52.3, Estimated Mean Plasma Glucose 246H, Hemoglobin A1c 10.2, Calcium Level 8.4L, Total Bilirubin 0.6, Aspartate Amino Transf (AST/SGOT) 20, Alanine Aminotransferase (ALT/SGPT) 28, Alkaline Phosphatase 119H, Total Protein 6.2L, Albumin 3.5, Albumin/Globulin Ratio 1.3, Triglycerides Level 134, Total Cholesterol 88, LDL Cholesterol 27, Non-HDL Cholesterol (LDL + VLDL) 54, Total HDL Cholesterol 34L, Cholesterol/HDL Ratio 2.588 08/18/19 08:59: Bedside Glucose (Misc Panel) 102 08/18/19 09:30: Urine Color YELLOW, Urine Appearance CLEAR, Urine pH 6.0, Urine Specific [place] 1.006, Urine Protein NEGATIVE, Urine Glucose (Auto)(UA) NEGATIVE, Urine Ketones (Auto) NEGATIVE, Urine Blood 1+H, Urine Nitrite NEGATIVE, Urine Bilirubin NEGATI VE, Urine Urobilinogen 0.2, Urine Leukocyte Esterase (Auto) TRACEH, Urine WBC (Auto) 2, Urine RBC (Auto) 2, Urine Hyaline Casts (Auto) 0, Urine Bacteria (Auto) NEGATIVE, Urine Squamous Epithelial Cells 1, Urine Sperm (Auto) 08/18/19 12:00: Bedside Glucose (Misc Panel) 114H CBC/BMP Laboratory Tests 08/18/19 05:35 Microbiology Microbiology 08/17/19 Blood Culture - Preliminary, Resulted No growth after 24 hours . All specim... 08/17/19 Blood Culture - Preliminary, Resulted No growth after 24 hours . All specim... 08/17/19 Respiratory Virus Panel (PCR) (CANDELARIA) - Final, Complete Current Medications Current Medications Medications (Trade) Dose Ordered Sig/Aida Route PRN Reason Start Time Stop Time Status Last Admin Dose Admin Albuterol Sulfate (Proventil Neb) 2.5 mg Q2HP PRN NEB WHEEZING 08/17/19 18:00 Albuterol/ Ipratropium (Duoneb (Ipr 0.5mg/Alb 2.5mg)) 3 ml RQ8H NEB 08/18/19 00:00 08/18/19 15:23 Amlodipine Besylate (Norvasc) 5 mg DAILY PO 08/18/19 09:00 08/18/19 09:13 Atorvastatin Calcium (Lipitor) 10 mg DAILY PO 08/18/19 09:00 08/18/19 09:14 Atorvastatin Calcium (Lipitor) 20 mg DAILY PO 08/18/19 09:00 08/17/19 18:10 DC Benzonatate (Tessalon Perles) 100 mg BID PO 08/17/19 21:00 08/18/19 09:14 Dextrose (Dextrose 50%) 25 ml ASDIRECTED PRN IV SEE LABEL COMMENTS 08/18/19 08:15 Furosemide (LASIX injection) 30 mg Q12H IV 08/18/19 05:00 08/18/19 16:21 Glucagon (Glucagon) 1 mg ASDIRECTED PRN SC SEE LABEL COMMENTS 08/18/19 08:15 Glucose (Glucose) 16 GM ASDIRECTED PRN PO SEE LABEL COMMENTS 08/18/19 08:15 Home Med (Med Rec Complete!) ASDIRECTED XX 08/17/19 17:45 08/17/19 17:47 DC Insulin Detemir (Levemir Insulin) 16 units QHS SC 08/17/19 21:00 08/17/19 21:54 Insulin Human Lispro (HumaLOG INSULIN) SEE PROTOCOL TABLE AC SC 08/18/19 07:30 Insulin Human Lispro (HumaLOG INSULIN) SEE PROTOCOL TABLE QHS SC 08/18/19 21:00 Latanoprost (Xalatan 0.005% Op Soln) 1 drop QHS OU 08/17/19 21:00 08/17/19 21:53 Magnesium Oxide (Mag-Ox) 400 mg DAILY PO 08/18/19 09:00 08/18/19 09:14 Metoprolol Tartrate (Lopressor) 25 mg BID PO 08/17/19 21:00 08/18/19 09:13 Multivitamins (Theragram-M) 1 tab DAILY PO 08/18/19 09:00 08/18/19 09:13 Omeprazole (PriLOSEC) 40 mg DAILY PO 08/18/19 09:00 08/18/19 09:14 Potassium Chloride (Micro-K Extencaps) 20 meq DAILY PO 08/18/19 09:00 08/18/19 09:13 Rivaroxaban (Xarelto) 15 mg QPM@1800 PO 08/17/19 18:00 08/17/19 21:57 Salmeterol Xinafoate/ Fluticasone (Advair Hfa 230/ 21) 2 puff RBID INH 08/17/19 20:00 08/18/19 08:00 Trospium (Sanctura) 20 mg TID PO 08/17/19 21:00 08/18/19 16:21 Vitamin B Complex/ Vitamin C (Therapeutic B Complex w/C) 1 cap DAILY PO 08/18/19 09:00 08/18/19 09:19 Allergies Coded Allergies: brinzolamide (Verified Allergy, Intermediate, eye swelling, 05/08/19) brimonidine (Verified Adverse Reaction, Unknown, IRRITATION TO SKIN, 05/08/19) gabapentin (Verified Adverse Reaction, Unknown, ANGRY, IRRITABLE, 05/08/19) timolol (Verified Adverse Reaction, Unknown, IRRITATION TO SKIN, 05/08/19) Dayami Mcleod MD Aug 18, 2019 16:53
[2019-08-18] MEDS: RIVAROXABAN 15 MG TAB (XARELTO) PO SCH (18:15)
[2019-08-18] MEDS: LATANOPROST 0.005% OPHTH SOLN 2.5 ML OU SCH (21:45)
[2019-08-18] MEDS: LEVEMIR (INSULIN DETEMIR) 1 UNITS/0.01ML SC SCH (21:46)
[2019-08-18 22:00] VITALS: BP 139/78
[2019-08-19] MEDS: FUROSEMIDE 40MG/4ML VIAL (J1940) IV SCH ×2 (05:39→17:00)
[2019-08-19 05:44] LABS: HEMATOCRIT 35.2 % (36.0-47.0); HEMOGLOBIN 11.6 g/dl (12.0-15.5); MEAN CORPUSCULAR HEMOGLOBIN 29.4 pg (27.0-33.0); MEAN CORPUSCULAR VOLUME 89.1 fl (80.0-96.0); PLATELET COUNT, AUTOMATED 143 10^3/uL (150-450); RED BLOOD COUNT 3.95 10^6/uL (4.00-5.40)
[2019-08-19 06:00] VITALS: BP 133/72
[2019-08-19 06:30] LABS: ALBUMIN 3.2 GM/DL (3.2-5.2); BILIRUBIN,TOTAL 0.6 MG/DL (0.2-1.0); CALCIUM LEVEL 8.2 MG/DL (8.8-10.2); CREATININE FOR GFR 1.02 MG/DL (0.55-1.30); GLOMERULAR FILTRATION RATE 54.7 (>32); POTASSIUM SERUM 4.2 MEQ/L (3.5-5.1); TOTAL PROTEIN 5.8 GM/DL (6.4-8.2)
[2019-08-19] MEDS: ADVAIR HFA 230/21MCG INHALER INH SCH ×2 (07:13→17:57)
[2019-08-19] MEDS: IPRATROPIUM 0.5MG/ALBUTEROL 2.5MG INH SOL UD 3ML (DUONEB) NEB SCH ×3 (07:13→23:06)
[2019-08-19] MEDS: HumaLOG INSULIN (NovoLOG) PER UNIT SC SCH ×4 (07:30→21:00)
[2019-08-19] MEDS: TROSPIUM 20 MG TAB PO SCH ×3 (09:43→21:37)
[2019-08-19] MEDS: MAGNESIUM OXIDE 400MG TAB (MAG-OX) PO SCH (09:43)
[2019-08-19] MEDS: MULTIVITAMINS/MINERALS THERAP 1 TAB PO SCH (09:44)
[2019-08-19] MEDS: OMEPRAZOLE 20 MG CAP PO SCH (09:44)
[2019-08-19] MEDS: BENZONATATE 100 MG CAP PO SCH ×2 (09:44→21:37)
[2019-08-19] MEDS: POTASSIUM CHLORIDE 10 MEQ SR TABLET PO SCH (09:44)
[2019-08-19] MEDS: VITAMIN B COMPLEX/VIT C CAP PO SCH (09:44)
[2019-08-19] MEDS: ATORVASTATIN 10 MG TAB PO SCH (09:44)
[2019-08-19] MEDS: METOPROLOL TART 25 MG TABLET PO SCH ×2 (09:47→21:37)
[2019-08-19] MEDS: amLODIPine 5 MG TAB PO SCH (09:48)
[2019-08-19 14:00] VITALS: BP 123/69
--- NOTE | 2019-08-19 15:48 | IPNPDOC ---
Date Seen The patient was seen on 08/19/19. Progress Note SUBJECTIVE: Neg fluid balance, BNP improving. Blood sugars better controlled. Per PT/OT, patient is unsafe for discharge at this time and would benefit from continued services for several more days. Denies shortness of breath increased, chest pain, n/v/d. OBJECTIVE: VITAL SIGNS: Please see below PHYSICAL EXAMINATION: CONSTITUTIONAL: No acute distress, resting comfortably in bed, AAO x 3 EYES: PERRLA, EOM intact HENT, MOUTH: Normocephalic, atraumatic, moist mucous membranes, NECK: SUPPLE, no JVD, no lymphadenopathy, no carotid bruit CV: irregularly irregular heart rate, S1S2 normal, no murmurs/rubs/gallops RESPIRATORY: crackles in bilateral posterior lung bases-faint, no rales/rhonchi/wheezes GI: BS positive in 4 quadrants, soft, nontender, nondistended, no rebound or guarding, no organomegaly : Deferred MUSCULOSKELETAL: Normal ROM. No cyanosis, clubbing, swelling, joint deformity, extremity edema INTEGUMENTARY: Intact, no rashes, no lesions, no erythema NEUROLOGIC: Cranial Nerves II-XII are intact, no focal deficits PSYCHIATRIC: Mood and affect are normal LABORATORY DATA: Please see below IMAGING: No new imaging. ASSESSMENT: Patient is an 84 y/o F admitted for acute diastolic CHF exacerbation, weakness, unsteadiness on feet. PLAN: 1. Acute diastolic CHF exacerbation. BNP improving, neg fluid balance/24 hrs. C/w on lasix BID, BB, CCB. Close monitoring of I&O, daily wt, 2 gm sodium diet, monitor on tele. F/u repeat echo, daily labs. 2. Weakness, unsteadiness. Possibly 2/2 to problem #1. Electrolytes stable, f/u daily labs. PT/O states patient is unsafe for discharge at this time, recommend 2-3 more days of therapy. Optimize nutrition. 3. Atrial fibrillation, chronic and controlled currently. No events on telemetry over the evening. C/w BB, CCB, xarelto. Telemetry 4. DM type II. BS controlled. HbA1c 10.2 , lipid panel unremarkable. C/w ISS, AC/HS blood sugar checks, levemir, consistent carb diet. 5. Severe pulmonary HTN. Could be cause of worsening SOB. F/u repeat echo, c/w home medications. 6. Asthma?/diffusion impairment - PFTs 2012. Started on duoneb Q8H and albuterol PRN. Currently saturating well on RA but obviously SOB. 7. HTN. Stable. C/w home meds. 8. HLD. C/w statin. 9. GERD. PPI 10. DVT px. Xarelto DISPOSITION: Admitted under inpatient status. Plan is undetermined at this time for discharge, but hope is she can go home after evaluation by PT/OT. VS, I&O, 24H, [place]bone Vital Signs/I&O Vital Signs Date Time Temp Pulse Resp B/P (MAP) Pulse Ox O2 Delivery O2 Flow Rate FiO2 08/19/19 09:47 72 123/70 08/19/19 06:00 97.0 18 96 Room Air I&O- Last 24 Hours up to 6 AM 08/19/19 06:00 Intake Total 1490 ml Output Total 1775 ml Balance -285 ml Laboratory Data 24H LABS Laboratory Tests 2 08/18/19 16:55: Bedside Glucose (Misc Panel) 166H 08/18/19 20:00: Bedside Glucose (Misc Panel) 189H 08/19/19 05:31: Nucleated Red Blood Cells % (auto) 0.0, Anion Gap 8, Glomerular Filtration Rate 54.7, Calcium Level 8.2L, Total Bilirubin 0.6, Aspartate Amino Transf (AST/SGOT) 29, Alanine Aminotransferase (ALT/SGPT) 32, Alkaline Phosphatase 112, AM-Eqx-F-Type Natriuretic Peptide 4320H, Total Protein 5.8L, Albumin 3.2, Albumin/Globulin Ratio 1.2 CBC/BMP Laboratory Tests 08/19/19 05:31 Microbiology Microbiology 08/17/19 Blood Culture - Preliminary, Resulted No growth after 24 hours . All specim... 08/17/19 Blood Culture - Preliminary, Resulted No growth after 24 hours . All specim... 08/17/19 Respiratory Virus Panel (PCR) (CANDELARIA) - Final, Complete Current Medications Current Medications Medications (Trade) Dose Ordered Sig/Aida Route PRN Reason Start Time Stop Time Status Last Admin Dose Admin Albuterol Sulfate (Proventil Neb) 2.5 mg Q2HP PRN NEB WHEEZING 08/17/19 18:00 Albuterol/ Ipratropium (Duoneb (Ipr 0.5mg/Alb 2.5mg)) 3 ml RQ8H NEB 08/18/19 00:00 08/18/19 15:23 Amlodipine Besylate (Norvasc) 5 mg DAILY PO 08/18/19 09:00 08/19/19 09:48 Atorvastatin Calcium (Lipitor) 10 mg DAILY PO 08/18/19 09:00 08/19/19 09:44 Atorvastatin Calcium (Lipitor) 20 mg DAILY PO 08/18/19 09:00 08/17/19 18:10 DC Benzonatate (Tessalon Perles) 100 mg BID PO 08/17/19 21:00 08/19/19 09:44 Dextrose (Dextrose 50%) 25 ml ASDIRECTED PRN IV SEE LABEL COMMENTS 08/18/19 08:15 Furosemide (LASIX injection) 30 mg Q12H IV 08/18/19 05:00 08/19/19 05:39 Glucagon (Glucagon) 1 mg ASDIRECTED PRN SC SEE LABEL COMMENTS 08/18/19 08:15 Glucose (Glucose) 16 GM ASDIRECTED PRN PO SEE LABEL COMMENTS 08/18/19 08:15 Home Med (Med Rec Complete!) ASDIRECTED XX 08/17/19 17:45 08/17/19 17:47 DC Insulin Detemir (Levemir Insulin) 16 units QHS SC 08/17/19 21:00 08/18/19 21:46 Insulin Human Lispro (HumaLOG INSULIN) SEE PROTOCOL TABLE AC SC 08/18/19 07:30 08/19/19 12:55 Insulin Human Lispro (HumaLOG INSULIN) SEE PROTOCOL TABLE QHS SC 08/18/19 21:00 Latanoprost (Xalatan 0.005% Op Soln) 1 drop QHS OU 08/17/19 21:00 08/18/19 21:45 Magnesium Oxide (Mag-Ox) 400 mg DAILY PO 08/18/19 09:00 08/19/19 09:43 Metoprolol Tartrate (Lopressor) 25 mg BID PO 08/17/19 21:00 08/19/19 09:47 Multivitamins (Theragram-M) 1 tab DAILY PO 08/18/19 09:00 08/19/19 09:44 Omeprazole (PriLOSEC) 40 mg DAILY PO 08/18/19 09:00 08/19/19 09:44 Potassium Chloride (Micro-K Extencaps) 20 meq DAILY PO 08/18/19 09:00 08/19/19 09:44 Rivaroxaban (Xarelto) 15 mg QPM@1800 PO 08/17/19 18:00 08/18/19 18:15 Salmeterol Xinafoate/ Fluticasone (Advair Hfa 230/ 21) 2 puff RBID INH 08/17/19 20:00 08/19/19 07:13 Trospium (Sanctura) 20 mg TID PO 08/17/19 21:00 08/19/19 09:43 Vitamin B Complex/ Vitamin C (Therapeutic B Complex w/C) 1 cap DAILY PO 08/18/19 09:00 08/19/19 09:44 Allergies Coded Allergies: brinzolamide (Verified Allergy, Intermediate, eye swelling, 05/08/19) brimonidine (Verified Adverse Reaction, Unknown, IRRITATION TO SKIN, 05/08/19) gabapentin (Verified Adverse Reaction, Unknown, ANGRY, IRRITABLE, 05/08/19) timolol (Verified Adverse Reaction, Unknown, IRRITATION TO SKIN, 05/08/19) Dayami Mcleod MD Aug 19, 2019 15:48
[2019-08-19] MEDS: RIVAROXABAN 15 MG TAB (XARELTO) PO SCH (17:00)
[2019-08-19] MEDS: LEVEMIR (INSULIN DETEMIR) 1 UNITS/0.01ML SC SCH (21:38)
[2019-08-19] MEDS: LATANOPROST 0.005% OPHTH SOLN 2.5 ML OU SCH (21:38)
[2019-08-19 22:00] VITALS: BP 123/67
[2019-08-20] MEDS ORDERED: ALPRAZolam 0.25 MG TAB PO ONE (01:30)
[2019-08-20] MEDS: FUROSEMIDE 40MG/4ML VIAL (J1940) IV SCH ×2 (05:12→16:39)
[2019-08-20 05:51] LABS: HEMATOCRIT 35.9 % (36.0-47.0); HEMOGLOBIN 11.6 g/dl (12.0-15.5); MEAN CORPUSCULAR HEMOGLOBIN 29.1 pg (27.0-33.0); MEAN CORPUSCULAR HGB CONC 32.3 g/dl (32.0-36.5); MEAN CORPUSCULAR VOLUME 90.2 fl (80.0-96.0); PLATELET COUNT, AUTOMATED 136 10^3/uL (150-450); RED BLOOD COUNT 3.98 10^6/uL (4.00-5.40); WHITE BLOOD COUNT 9.3 10^3/uL (4.0-10.0)
[2019-08-20 06:00] VITALS: BP 126/66
[2019-08-20 06:20] LABS: ALBUMIN 3.4 GM/DL (3.2-5.2); BILIRUBIN,TOTAL 0.6 MG/DL (0.2-1.0); CALCIUM LEVEL 8.2 MG/DL (8.8-10.2); CREATININE FOR GFR 1.02 MG/DL (0.55-1.30); GLOMERULAR FILTRATION RATE 54.7 (>32); POTASSIUM SERUM 4.4 MEQ/L (3.5-5.1)
[2019-08-20] MEDS: IPRATROPIUM 0.5MG/ALBUTEROL 2.5MG INH SOL UD 3ML (DUONEB) NEB SCH ×2 (07:51→14:16)
[2019-08-20] MEDS: ADVAIR HFA 230/21MCG INHALER INH SCH ×2 (07:51→19:48)
[2019-08-20] MEDS: amLODIPine 5 MG TAB PO SCH (08:20)
[2019-08-20] MEDS: MULTIVITAMINS/MINERALS THERAP 1 TAB PO SCH (08:21)
[2019-08-20] MEDS: BENZONATATE 100 MG CAP PO SCH ×2 (08:21→20:32)
[2019-08-20] MEDS: METOPROLOL TART 25 MG TABLET PO SCH ×2 (08:21→20:33)
[2019-08-20] MEDS: ATORVASTATIN 10 MG TAB PO SCH (08:21)
[2019-08-20] MEDS: MAGNESIUM OXIDE 400MG TAB (MAG-OX) PO SCH (08:21)
[2019-08-20] MEDS: TROSPIUM 20 MG TAB PO SCH ×3 (08:21→20:32)
[2019-08-20] MEDS: VITAMIN B COMPLEX/VIT C CAP PO SCH (08:21)
[2019-08-20] MEDS: POTASSIUM CHLORIDE 10 MEQ SR TABLET PO SCH (08:21)
[2019-08-20] MEDS: HumaLOG INSULIN (NovoLOG) PER UNIT SC SCH ×4 (08:22→20:33)
[2019-08-20] MEDS: OMEPRAZOLE 20 MG CAP PO SCH (08:22)
[2019-08-20 14:00] VITALS: BP 121/71
--- NOTE | 2019-08-20 15:32 | IPNPDOC ---
Date Seen The patient was seen on 08/20/19. Progress Note SUBJECTIVE: Echo pending, at this time physical therapy is recommending at least another day of services before discharge. Saturating well on room air. Denies shortness of breath increased, chest pain, n/v/d. OBJECTIVE: VITAL SIGNS: Please see below PHYSICAL EXAMINATION: CONSTITUTIONAL: No acute distress, resting comfortably in bed, AAO x 3 EYES: PERRLA, EOM intact HENT, MOUTH: Normocephalic, atraumatic, moist mucous membranes, NECK: SUPPLE, no JVD, no lymphadenopathy, no carotid bruit CV: irregularly irregular heart rate, S1S2 normal, no murmurs/rubs/gallops RESPIRATORY: crackles in bilateral posterior lung bases-faint, no rales/rhonchi/wheezes GI: BS positive in 4 quadrants, soft, nontender, nondistended, no rebound or guarding, no organomegaly : Deferred MUSCULOSKELETAL: Normal ROM. No cyanosis, clubbing, swelling, joint deformity, extremity edema INTEGUMENTARY: Intact, no rashes, no lesions, no erythema NEUROLOGIC: Cranial Nerves II-XII are intact, no focal deficits PSYCHIATRIC: Mood and affect are normal LABORATORY DATA: Please see below IMAGING: No new imaging. ASSESSMENT: Patient is an 84 y/o F admitted for acute diastolic CHF exacerbati on, weakness, unsteadiness on feet. PLAN: 1. Acute diastolic CHF exacerbation. BNP improved, on RA, Echocardiogram pending. C/w on lasix BID, BB, CCB. Close monitoring of I&O, daily wt, 2 gm sodium diet, monitor on tele. F/u daily labs. 2. Weakness, unsteadiness. Improving with physical therapy, treatment of CHF. Electrolytes stable, f/u daily labs. PT/OT: likely ok for discharge after 1 more day of services. Optimize nutrition. Using rolling walker-baseline. 3. Atrial fibrillation, chronic and controlled currently. No events on telemetry over the evening. C/w BB, CCB, xarelto. Telemetry 4. DM type II. BS controlled. HbA1c 10.2 , lipid panel unremarkable. C/w ISS, AC/HS blood sugar checks, levemir, consistent carb diet. 5. Severe pulmonary HTN. Could be cause of worsening SOB. F/u results of echo, c/w home medications. 6. Asthma?/diffusion impairment - PFTs 2012. Started on duoneb Q8H and albuterol PRN. Currently saturating well on RA. 7. HTN. Stable. C/w home meds. 8. HLD. C/w statin. 9. GERD. PPI 10. DVT px. Xarelto DISPOSITION: Admitted under inpatient status. Plan is discharge on 08/21/19 if last session with PT/OT goes well. Updated HCP Rajeev. VS, I&O, 24H, Remy[facility] Vital Signs/I&O Vital Signs Date Time Temp Pulse Resp B/P (MAP) Pulse Ox O2 Delivery O2 Flow Rate FiO2 08/20/19 14:00 98.3 65 19 121/71 (88) 95 Room Air I&O- Last 24 Hours up to 6 AM 08/20/19 06:00 Intake Total 2670 ml Output Total 2425 ml Balance 245 ml Laboratory Data 24H LABS Laboratory Tests 2 08/19/19 16:53: Bedside Glucose (Misc Panel) 134H 08/19/19 20:26: Bedside Glucose (Misc Panel) 191H 08/20/19 00:22: Bedside Glucose (Misc Panel) 292H 08/20/19 05:12: Nucleated Red Blood Cells % (auto) 0.0, Anion Gap 7L, Glomerular Filtration Rate 54.7, Calcium Level 8.2L, Total Bilirubin 0.6, Aspartate Amino Transf (AST/SGOT) 51H, Alanine Aminotransferase (ALT/SGPT) 45, Alkaline Phosphatase 159H, Total Protein 6.0L, Albumin 3.4, Albumin/Globulin Ratio 1.3 08/20/19 11:37: Bedside Glucose (Misc Panel) 93 CBC/BMP Laboratory Tests 08/20/19 05:12 Microbiology Microbiology 08/17/19 Blood Culture - Preliminary, Resulted No Growth after 48 hours. All Specime... 08/17/19 Blood Culture - Preliminary, Resulted No Growth after 48 hours. All Specime... 08/17/19 Respiratory Virus Panel (PCR) ([facility]) - Final, Complete Current Medications Current Medications Medications (Trade) Dose Ordered Sig/Aida Route PRN Reason Start Time Stop Time Status Last Admin Dose Admin Albuterol Sulfate (Proventil Neb) 2.5 mg Q2HP PRN NEB WHEEZING 08/17/19 18:00 Albuterol/ Ipratropium (Duoneb (Ipr 0.5mg/Alb 2.5mg)) 3 ml RQ8H NEB 08/18/19 00:00 08/20/19 14:16 Amlodipine Besylate (Norvasc) 5 mg DAILY PO 08/18/19 09:00 08/20/19 08:20 Atorvastatin Calcium (Lipitor) 10 mg DAILY PO 08/18/19 09:00 08/20/19 08:21 Atorvastatin Calcium (Lipitor) 20 mg DAILY PO 08/18/19 09:00 08/17/19 18:10 DC Benzonatate (Tessalon Perles) 100 mg BID PO 08/17/19 21:00 08/20/19 08:21 Dextrose (Dextrose 50%) 25 ml ASDIRECTED PRN IV SEE LABEL COMMENTS 08/18/19 08:15 Furosemide (LASIX injection) 30 mg Q12H IV 08/18/19 05:00 08/20/19 05:12 Glucagon (Glucagon) 1 mg ASDIRECTED PRN SC SEE LABEL COMMENTS 08/18/19 08:15 Glucose (Glucose) 16 GM ASDIRECTED PRN PO SEE LABEL COMMENTS 08/18/19 08:15 Home Med (Med Rec Complete!) ASDIRECTED XX 08/17/19 17:45 08/17/19 17:47 DC Insulin Detemir (Levemir Insulin) 16 units QHS SC 08/17/19 21:00 08/19/19 21:38 Insulin Human Lispro (HumaLOG INSULIN) SEE PROTOCOL TABLE AC SC 08/18/19 07:30 08/20/19 08:22 Insulin Human Lispro (HumaLOG INSULIN) SEE PROTOCOL TABLE QHS SC 08/18/19 21:00 Latanoprost (Xalatan 0.005% Op Soln) 1 drop QHS OU 08/17/19 21:00 08/19/19 21:38 Magnesium Oxide (Mag-Ox) 400 mg DAILY PO 08/18/19 09:00 08/20/19 08:21 Metoprolol Tartrate (Lopressor) 25 mg BID PO 08/17/19 21:00 08/20/19 08:21 Multivitamins (Theragram-M) 1 tab DAILY PO 08/18/19 09:00 08/20/19 08:21 Omeprazole (PriLOSEC) 40 mg DAILY PO 08/18/19 09:00 08/20/19 08:22 Potassium Chloride (Micro-K Extencaps) 20 meq DAILY PO 08/18/19 09:00 08/20/19 08:21 Rivaroxaban (Xarelto) 15 mg QPM@1800 PO 08/17/19 18:00 08/19/19 17:00 Salmeterol Xinafoate/ Fluticasone (Advair Hfa 230/ 21) 2 puff RBID INH 08/17/19 20:00 08/20/19 07:51 Trospium (Sanctura) 20 mg TID PO 08/17/19 21:00 08/20/19 08:21 Vitamin B Complex/ Vitamin C (Therapeutic B Complex w/C) 1 cap DAILY PO 08/18/19 09:00 08/20/19 08:21 Allergies Coded Allergies: brinzolamide (Verified Allergy, Intermediate, eye swelling, 05/08/19) brimonidine (Verified Adverse Reaction, Unknown, IRRITATION TO SKIN, 05/08/19) gabapentin (Verified Adverse Reaction, Unknown, ANGRY, IRRITABLE, 05/08/19) timolol (Verified Adverse Reaction, Unknown, IRRITATION TO SKIN, 05/08/19) Dayami Mcleod MD Aug 20, 2019 15:32
[2019-08-20] MEDS: RIVAROXABAN 15 MG TAB (XARELTO) PO SCH (17:17)
[2019-08-20] MEDS: LATANOPROST 0.005% OPHTH SOLN 2.5 ML OU SCH (20:34)
[2019-08-20] MEDS: LEVEMIR (INSULIN DETEMIR) 1 UNITS/0.01ML SC SCH (20:34)
[2019-08-20 22:00] VITALS: BP 118/65
[2019-08-21] MEDS: IPRATROPIUM 0.5MG/ALBUTEROL 2.5MG INH SOL UD 3ML (DUONEB) NEB SCH ×3 (00:13→17:09)
[2019-08-21] MEDS: FUROSEMIDE 40MG/4ML VIAL (J1940) IV SCH ×2 (04:45→16:10)
[2019-08-21 05:47] LABS: HEMATOCRIT 35.2 % (36.0-47.0); HEMOGLOBIN 11.3 g/dl (12.0-15.5); MEAN CORPUSCULAR HGB CONC 32.1 g/dl (32.0-36.5); MEAN CORPUSCULAR VOLUME 90.3 fl (80.0-96.0); PLATELET COUNT, AUTOMATED 124 10^3/uL (150-450); WHITE BLOOD COUNT 8.6 10^3/uL (4.0-10.0)
[2019-08-21 06:00] VITALS: BP 144/80
[2019-08-21 06:18] LABS: ALBUMIN 3.2 GM/DL (3.2-5.2); ALT/SGPT 47 U/L (12-78); BILIRUBIN,TOTAL 0.7 MG/DL (0.2-1.0); BLOOD UREA NITROGEN 26 MG/DL (7-18); CALCIUM LEVEL 8.3 MG/DL (8.8-10.2); CARBON DIOXIDE LEVEL 26 MEQ/L (21-32); CHLORIDE LEVEL 107 MEQ/L (98-107); CREATININE FOR GFR 0.86 MG/DL (0.55-1.30); GLOMERULAR FILTRATION RATE > 60.0 (>32); GLUCOSE, FASTING 75 MG/DL (70-100); POTASSIUM SERUM 4.2 MEQ/L (3.5-5.1); SODIUM LEVEL 141 MEQ/L (136-145); TOTAL PROTEIN 5.7 GM/DL (6.4-8.2)
[2019-08-21] MEDS: ADVAIR HFA 230/21MCG INHALER INH SCH ×2 (07:13→18:10)
[2019-08-21] MEDS: HumaLOG INSULIN (NovoLOG) PER UNIT SC SCH ×4 (07:30→20:22)
--- NOTE | 2019-08-21 08:18 | ECHO ---
DATE OF STUDY: 08/20/2019 REFERRING PHYSICIAN: Dr. Dayami Mcleod INDICATION: Pulmonary hypertension, shortness of breath, heart failure unspecified. HEIGHT: 145 cm. WEIGHT: 55 kg. 2-D MEASUREMENTS: Aortic root: 2.6 cm Left atrium: 4.2 cm Left ventricle diastole: 3.65 cm Posterior wall: 1.22 cm Ventricular septum: 1.20 cm Aortic annulus: 2.0 cm Inferior vena cava: 1.5 cm DOPPLER MEASUREMENTS: Mild aortic regurgitation Aortic valve velocity: 157 cm/sec LVOT velocity: 77.0 cm/sec LVOT VTI: 16.5 cm Moderate mitral regurgitation No mitral stenosis Mitral E velocity: 145 cm/sec Mitral deceleration time: 183 ms Severe tricuspid regurgitation Moderate pulmonic regurgitation Estimated right ventricular systolic pressure 44 mmHg DESCRIPTION: The rhythm was atrial fibrillation with controlled ventricular response. Image quality was moderately technically difficult. This was a 2-D, M-mode, color flow Doppler and pulse wave Doppler examination and included mitral annular tissue Doppler. CONCLUSIONS: 1. Suggestive of moderate elevation of pulmonary artery systolic pressure (44 mmHg). Mild right ventricle dilatation by visual assessment. Flattening of the ventricular septum end diastole in keeping with volume overload of the right ventricle. Structurally normal appearing tricuspid leaflets with severe tricuspid regurgitation. Moderate right atrial dilatation by visual assessment. Moderate pulmonic regurgitation. 2. Very mild concentric left ventricle hypertrophy. Normal regional LV wall motion and wall thickening. Normal LV systolic function. LVEF 65% by visual estimate. 3. Moderate mitral annular calcification. Moderate mitral regurgitation. No mitral stenosis. 4. Moderate left atrial dilatation by visual assessment. 5. Moderate aortic valve sclerosis with a 3-cuspid aortic valve. Mild aortic regurgitation. No aortic stenosis. 6. Tiny pericardial effusion.
[2019-08-21] MEDS: TROSPIUM 20 MG TAB PO SCH ×3 (09:23→20:17)
[2019-08-21] MEDS: BENZONATATE 100 MG CAP PO SCH ×2 (09:23→20:17)
[2019-08-21] MEDS: OMEPRAZOLE 20 MG CAP PO SCH (09:23)
[2019-08-21] MEDS: MAGNESIUM OXIDE 400MG TAB (MAG-OX) PO SCH (09:23)
[2019-08-21] MEDS: VITAMIN B COMPLEX/VIT C CAP PO SCH (09:23)
[2019-08-21] MEDS: MULTIVITAMINS/MINERALS THERAP 1 TAB PO SCH (09:23)
[2019-08-21] MEDS: amLODIPine 5 MG TAB PO SCH (09:24)
[2019-08-21] MEDS: METOPROLOL TART 25 MG TABLET PO SCH ×2 (09:24→20:19)
[2019-08-21] MEDS: ATORVASTATIN 10 MG TAB PO SCH (09:24)
[2019-08-21] MEDS: POTASSIUM CHLORIDE 10 MEQ SR TABLET PO SCH (09:24)
[2019-08-21] MEDS ORDERED: LASI40TA9 PO (13:40)
[2019-08-21 14:00] VITALS: BP 119/53
--- NOTE | 2019-08-21 14:31 | IPNPDOC ---
Subjective Date Seen The patient was seen on 08/21/19. Subjective Chief Complaint/HPI Patient is stable and ready to go home, but cookie swallow was recommended by speech therapy. Unfortunately the cookie swallow machine is broken. She will let to wait till tomorrow for test and then can be discharged home. Patient offers no new complaints General: Denies: ROS Unobtainable, Chills, Night Sweats, Fatigue, Malaise, Normal Appetite, Other Symptoms Pulmonary: Denies: Dyspnea, Cough, Pleuritic Chest Pain, Other Symptoms Cardiovascular: Denies: Chest Pain, Palpitations, Orthopnea, Paroxysmal Noc. Dyspnea, Edema, Lt Headedness, Other Symptoms Gastrointestinal: Denies: Nausea, Vomiting, Abdominal Pain, Diarrhea, Constipation, Melena, Hematochezia, Other Symptoms Genitourinary: Denies: Dysuria, Frequency, Incontinence, Hematuria, Retention, Other Symptoms Musculoskeletal: Denies: Neck Pain, Back Pain, Shoulder Pain, Arm Pain, Hand Pain, Leg Pain, Foot Pain, Joint Pain, Muscle Pain, Spasms, Other Symptoms Neurological: Denies: Weakness, Numbness, Incoordination, Change in speech, Confusion, Seizures, Other Symptoms Objective Physical Examination General Exam: Positive: Alert, Cooperative Eye Exam: Positive: PERRLA, Conjunctiva & lids normal ENT Exam: Positive: Atraumatic Neck Exam: Positive: Supple Chest Exam: Positive: Clear to auscultation, Normal air movement Heart Exam: Positive: Rate Normal, Normal S1, Normal S2 Abdomen Exam: Positive: Normal bowel sounds Extremity Exam: Positive: Normal pulses Skin Exam: Positive: Nl turgor and temperature Neuro Exam: Positive: Strength at 5/5 X4 ext, Cranial Nerves 3-12 NL Psych Exam: Positive: Mood NL, Oriented x 3 Assessment /Plan Problems (1) CHF (congestive heart failure) Status: Acute Problem Text: Acute diastolic CHF exacerbation. BNP improved, on RA, Echocardiogram pending. C/w on lasix BID, BB, CCB. Close monitoring of I&O, daily wt, 2 gm sodium diet, monitor on tele. F/u daily labs. Discussed with Dr. Perez, according to Dr. Wong. Patient also sees some other physician and he had not started her on any diuretics. Will start patient on Lasix 40 mg by mouth daily along with all meds on discharge and follow with PCP in one week Also, will recommend outpatient fluid restriction to 1.5 L per day (2) Diabetes mellitus Status: Chronic Problem Text: DM type II. BS controlled. HbA1c 10.2 , lipid panel unremarkable. C/w ISS, AC/HS blood sugar checks, levemir, consistent carb diet. (3) GERD (gastroesophageal reflux disease) Status: Chronic Problem Text: Continue home meds (4) Asthma Status: Chronic Problem Text: Continue home meds (5) Afib Status: Chronic Problem Text: Atrial fibrillation, chronic and controlled currently. No events on telemetry over the evening. C/w BB, CCB, xarelto. Telemetry (6) Pulmonary HTN Status: Chronic Problem Text: Severe pulmonary HTN. Could be cause of worsening SOB. F/u results of echo, c/w home medications. Plan/VTE VTE Prophylaxis Ordered?: Yes VS, I&O, 24H, Fishbone Vital Signs/I&O Vital Signs Date Time Temp Pulse Resp B/P (MAP) Pulse Ox O2 Delivery O2 Flow Rate FiO2 08/21/19 09:24 76 113/54 08/21/19 06:00 98.7 18 95 Room Air l I&O- Last 24 Hours up to 6 AM 08/21/19 05:59 Intake Total 2500 ml Output Total 925 ml Balance 1575 ml Laboratory Data 24H LABS Laboratory Tests 2 08/20/19 16:33: Bedside Glucose (Misc Panel) 199H 08/20/19 20:15: Bedside Glucose (Misc Panel) 201H 08/21/19 05:07: Nucleated Red Blood Cells % (auto) 0.0, Anion Gap 8, Glomerular Filtration Rate > 60.0, Calcium Level 8.3L, Total Bilirubin 0.7, Aspartate Amino Transf (AST/SGOT) 38H, Alanine Aminotransferase (ALT/SGPT) 47, Alkaline Phosphatase 155H, Total Protein 5.7L, Albumin 3.2, Albumin/Globulin Ratio 1.3 08/21/19 11:39: Bedside Glucose (Misc Panel) 109 CBC/BMP Laboratory Tests 08/21/19 05:07 Microbiology Microbiology 08/17/19 Blood Culture - Preliminary, Resulted No Growth after 72 hours. All specime... 08/17/19 Blood Culture - Preliminary, Resulted No Growth after 72 hours. All specime... 08/17/19 Respiratory Virus Panel (PCR) ([facility]) - Final, Complete LÓPEZ HANSON MD Aug 21, 2019 14:31
[2019-08-21] MEDS: RIVAROXABAN 15 MG TAB (XARELTO) PO SCH (18:14)
[2019-08-21] MEDS: LATANOPROST 0.005% OPHTH SOLN 2.5 ML OU SCH (20:20)
[2019-08-21] MEDS: LEVEMIR (INSULIN DETEMIR) 1 UNITS/0.01ML SC SCH (20:22)
[2019-08-21] MEDS ORDERED: NORTRIPTYLINE 10 MG CAP PO ONE (21:30)
[2019-08-21 22:00] VITALS: BP 137/79
[2019-08-22] MEDS: FUROSEMIDE 40MG/4ML VIAL (J1940) IV SCH (04:49)
[2019-08-22 06:00] VITALS: BP 134/78
[2019-08-22] MEDS: IPRATROPIUM 0.5MG/ALBUTEROL 2.5MG INH SOL UD 3ML (DUONEB) NEB SCH ×2 (07:06)
[2019-08-22] MEDS: ADVAIR HFA 230/21MCG INHALER INH SCH (07:06)
[2019-08-22] MEDS: HumaLOG INSULIN (NovoLOG) PER UNIT SC SCH ×2 (07:30→11:58)
[2019-08-22] MEDS ORDERED: E-Z-PAQUE 96% w/w SUSP 176GM BTL As Ordered ONE (07:52)
[2019-08-22] MEDS ORDERED: BARIUM SULFATE 700 MG TABLET (E-Z-DISK) As Ordered ONE (07:52)
[2019-08-22] MEDS ORDERED: VARIBAR NECTAR 40% w/v 240ML SUSP BTL As Ordered ONE (07:52)
[2019-08-22] MEDS ORDERED: VARIBAR PUDDING 40% w/v 230ML TUBE As Ordered ONE (07:52)
[2019-08-22] MEDS: MAGNESIUM OXIDE 400MG TAB (MAG-OX) PO SCH (09:32)
[2019-08-22] MEDS: BENZONATATE 100 MG CAP PO SCH (09:32)
[2019-08-22] MEDS: VITAMIN B COMPLEX/VIT C CAP PO SCH (09:32)
[2019-08-22] MEDS: TROSPIUM 20 MG TAB PO SCH (09:32)
[2019-08-22] MEDS: ATORVASTATIN 10 MG TAB PO SCH (09:32)
[2019-08-22 09:33] VITALS: BP 134/78
[2019-08-22] MEDS: OMEPRAZOLE 20 MG CAP PO SCH (09:33)
[2019-08-22] MEDS: MULTIVITAMINS/MINERALS THERAP 1 TAB PO SCH (09:33)
[2019-08-22] MEDS: POTASSIUM CHLORIDE 10 MEQ SR TABLET PO SCH (09:33)
[2019-08-22] MEDS: amLODIPine 5 MG TAB PO SCH (09:33)
[2019-08-22] MEDS: METOPROLOL TART 25 MG TABLET PO SCH (09:33)
--- NOTE | 2019-08-22 11:54 | DS.PDOC ---
Discharge Summary General Date of Admission Aug 17, 2019 at 17:27 Date of Discharge 08/22/19 Discharge Summary PROCEDURES PERFORMED DURING STAY: None. ADMITTING DIAGNOSES: 1. Acute diastolic heart failure, chronic atrial fibrillation. DISCHARGE DIAGNOSES: 1. Acute diastolic heart failure, chronic atrial fibrillation, severe pulmonary hypertension, diabetes mellitus, diabetic retinopathy, hypertension, hyperlipidemia, GERD. COMPLICATIONS/CHIEF COMPLAINT: CHF. HISTORY OF PRESENT ILLNESS: Patient is an 84 y/o F with PMH of diastolic CHF (EF 75%), chronic atrial fibrillation, severe pulmonary hypertension, diabetes mellitus w diabetic retinopathy, hypertension, hyperlipidemia, GERD who presented to [facility] after being brought in by family from primary care provider's office for worsening shortness of breath. Patient admits to increased shortness of breath especially with ambulation and at rest, racing heartbeats that can feel like its "beating out of my chest" . She denies coughing, fevers, chills, recent illnesses, chest pain. She does not normally walk with a walker but recently has needed it due to unsteadiness on feet. No recent falls at home. She complains of bilateral lower ext pain, nobody has told her what is from according to patient. She says she has had it for years. She says pain/cramping is present for 30 mins and then goes away. Patient states that her weakness correlates with her shortness of breath. Patient had a doctor's appointment today with her PCP. Patient's physician was concerned about "crackles in my lungs". Her HCP Kelly Raines was contacted and the patient was brought into the ER for further evaluation. She has history of needing hospitalization for CHF exacerbations. In the ER, VS were stable. CXR was wnl and did not show increased fluid. BNP was elevated at >5K, baseline is <4K. Last echo from 03/2019 showed EF 75%, pulmonary HTN. She was noticeably short of breath with talking and with activity. She required assistance to the restroom after Lasix was administered due to unsteadiness on her feet. Although her BNP was not impressively elevated from her baseline was still evident that the patient had increased shortness of breath from her baseline and required help ambulate in. The patient was admitted for acute CHF exacerbation and increased weakness, unsteadiness requiring physical therapy evaluation.. HOSPITAL COURSE: Acute diastolic CHF exacerbation. BNP improved, on RA, Echocardiogram pending. C/w on lasix BID, BB, CCB. Close monitoring of I&O, daily wt, 2 gm sodium diet, patient was monitored on telemetry and daily labs were followed and was continued on Lasix. Discussed with Dr. Perez, according to Dr. perez. Patient also sees some other physician and he had not started her on any diuretics. Will start patient on Lasix 40 mg by mouth daily along with all meds on discharge and follow with PCP and cardiology in one week Also, will recommend outpatient fluid restriction to 1.5 L per day Patient had a swallow eval done today, which he cleared and she will be discharged home today DM type II. BS controlled. HbA1c 10.2 , lipid panel unremarkable. C/w ISS, AC/HS blood sugar checks, levemir, consistent carb diet. GERD: Remained stable with home asthma: Stable with home meds Atrial fibrillation: Atrial fibrillation, chronic and controlled currently. No events on telemetry over the evening. C/w BB, CCB, xarelto. Severe pulmonary HTN. Could be cause of worsening SOB. F/u results of echo, c/w home medications. Also patient has been started on Lasix 40 mg by mouth daily and she will follow with cardiology Dr. Blue as an outpatient along with her PCP, Dr. Perez in one week . DISCHARGE MEDICATIONS: Please see below. ALLERGIES: Please see below. PHYSICAL EXAMINATION ON DISCHARGE: VITAL SIGNS: Please see below. GENERAL: Within normal limits HEENT: PERRLA. Extraocular muscles intact NECK: Supple, no JVD, no lymphadenopathy CARDIOVASCULAR EXAMINATION: S1, S2, regular RESPIRATORY EXAMINATION: Clear to A&P ABDOMINAL EXAMINATION: Benign EXTREMITIES: No clubbing, cyanosis, edema SKIN: Normal NEUROLOGICAL EXAMINATION: . No focal motor sensory deficit PSYCHIATRIC EXAMINATION: Normal LABORATORY DATA: Please see below. IMAGING: Chest x-ray:Impression: No focal infiltrate. Cardiomegaly and prominent interstitial markings unchanged. PROGNOSIS: Good ACTIVITY: As tolerated. DIET: As tolerated DISCHARGE PLAN: Follow with PCP and cardiology as an outpatient DISPOSITION: . Home DISCHARGE INSTRUCTIONS: 1. As per discharge instructions. ITEMS TO FOLLOWUP ON ON OUTPATIENT: 1. As above. DISCHARGE CONDITION: Stable. TIME SPENT ON DISCHARGE: 35 minutes. Vital Signs/I&Os Vital Signs Date Time Temp Pulse Resp B/P (MAP) Pulse Ox O2 Delivery O2 Flow Rate FiO2 08/22/19 09:33 70 134/78 08/22/19 06:00 98.3 18 91 Room Air I&O- Last 24 Hours up to 6 AM 08/22/19 06:00 Intake Total 1620 ml Output Total 1375 ml Balance 245 ml Laboratory Data Labs 24H Laboratory Tests 2 08/21/19 17:14: Bedside Glucose (Misc Panel) 137H 08/21/19 20:22: Bedside Glucose (Misc Panel) 169H 08/22/19 06:30: Bedside Glucose (Misc Panel) 70L 08/22/19 11:36: Bedside Glucose (Misc Panel) 104 FSBS Laboratory Tests Test 08/21/19 17:14 08/21/19 20:22 08/22/19 06:30 08/22/19 11:36 Range/Units Bedside Glucose (Misc Panel) 137 169 70 104 83-110 MG/DL Microbiology Microbiology 08/17/19 Blood Culture - Preliminary, Resulted No Growth after 72 hours. All specime... 08/17/19 Blood Culture - Preliminary, Resulted No Growth after 72 hours. All specime... 08/17/19 Respiratory Virus Panel (PCR) ([facility]) - Final, Complete Discharge Medications Scheduled Amlodipine/Atorvastatin (Amlodipine-Atorvast 5-10 mg) 1 Tab Tab, 1 TAB PO DAILY, (Reported) B-Complex with Vitamin C (Vitamin B-Complex with Vit C) 1 Each Tablet, 1 TAB PO DAILY, (Reported) Benzonatate (Benzonatate) 100 Mg Cap, 100 MG PO BID, (Reported) Bethanechol Chloride (Bethanechol Chloride) 25 Mg Tablet, 25 MG PO QHS, (Reported) Fluticasone Propion/Salmeterol (Advair Hfa 230-21 Mcg Inhaler) 12 Gm Hfa.aer.ad, 2 PUFF INH BID, (Reported) Furosemide (Lasix) 40 Mg Tablet, 1 TAB PO DAILY Insulin Detemir (Levemir) 100 Unit/1 Ml Vial, 16 UNITS SC QHS, (Reported) Magnesium Oxide (Magnesium Oxide) 500 Mg Tablet, 500 MG PO DAILY, (Reported) Metoprolol Tartrate (Metoprolol Tartrate) 25 Mg Tablet, 25 MG PO BID, (Reported) Multivitamins (Thera M Plus Tablet) 1 Each Tablet, 1 TAB PO DAILY, (Reported) Omeprazole (Omeprazole) 40 Mg Cap, 40 MG PO DAILY, (Reported) Potassium Chloride (Potassium Chloride) 20 Meq Tab.er.prt, 20 MEQ PO DAILY, (Reported) Rivaroxaban (Xarelto) 15 Mg Tablet, 15 MG PO QPM, (Reported) TAKES AT DINNERTIME Sitagliptin Phosphate (Januvia) 100 Mg Tablet, 100 MG PO DAILY, (Reported) Travoprost (Travatan Z) 0.004% 2.5ML Drops, 1 DROP OU QHS, (Reported) Trospium Chloride (Trospium Chloride) 20 Mg Tablet, 20 MG PO TID, (Reported) [[place]ands Leg Cramp Pm] , 4 TABS PO QHS, (Reported) Scheduled PRN Albuterol Sulfate (Albuterol Sulfate) 1.25 Mg/3 Ml Vial.neb, 1.25 MG INH BID PRN for SHORTNESS OF BREATH, (Reported) Allergies Coded Allergies: brinzolamide (Verified Allergy, Intermediate, eye swelling, 05/08/19) brimonidine (Verified Adverse Reaction, Unknown, IRRITATION TO SKIN, 05/08/19) gabapentin (Verified Adverse Reaction, Unknown, ANGRY, IRRITABLE, 05/08/19) timolol (Verified Adverse Reaction, Unknown, IRRITATION TO SKIN, 05/08/19) LÓPEZ HANSON MD Aug 22, 2019 11:54
[2019-08-22 14:00] VITALS: BP 122/60
--- NOTE | 2019-08-22 15:03 | REP ---
MODIFIED BARIUM SWALLOW: Pharyngeal video fluoroscopy. HISTORY: Swallowing evaluation. 2.0 minutes of fluoroscopy time utilized. FINDINGS: Lateral video fluoroscopy is provided in conjunction with the swallowing therapist who fed the patient various textures of barium labeled material. With thin liquid barium, there was flash laryngeal reflux without tracheal aspiration. A cricopharyngeus spasm was noted. No aspiration was seen. There was some oral transit hesitancy seen with pudding texture and semi-solid material. No other motor discoordination. 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 No tracheal aspiration. Electronically Signed by David Hernandez MD 08/22/2019 04:06 P
== END 2019-08-22 14:04 | disposition home or self-care (01) | DRG 292 ==
LOC: M ED 14:24 → M ED INP 17:27 → ENRESERV 19:19 → M MSPAV 20:47
PROVIDERS: ADMIT Internal Medicine; ATTEND Internal Medicine
DX: I11.0 Hypertensive heart disease with heart failure (principal); I48.20 Chronic atrial fibrillation, unspecified; I50.33 Acute on chronic diastolic (congestive) heart failure; R53.1 Weakness; E78.5 Hyperlipidemia, unspecified; I27.20 Pulmonary hypertension, unspecified; K21.9 Gastro-esophageal reflux disease without esophagitis; E11.319 Type 2 diabetes mellitus with unspecified diabetic retinopathy without macular edema; Z79.899 Other long term (current) drug therapy; Z88.8 Allergy status to other drugs, medicaments and biological substances; K57.30 Diverticulosis of large intestine without perforation or abscess without bleeding; Z95.0 Presence of cardiac pacemaker; J45.909 Unspecified asthma, uncomplicated